=== PATIENT | female | born 1945 | race Caucasian/White ===

== ENCOUNTER 2024-04-19 16:34 | Emergency (ER) | payer OTHER ==
[2024-04-19] MEDS ORDERED: HYDROCODONE/APAP 5/325 MG TAB ONE (19:07)
[2024-04-19] MEDS ORDERED: ONDANSETRON 4 MG (ODT) TAB ONE ×2 (19:07→19:09)
--- NOTE | 2024-04-19 19:44 | RAD REPORT ---
EXAM DESCRIPTION: CT - Spine Lumbar Wo Con - 04/19/2024 6:56 pm CLINICAL HISTORY: Radiculopathy. fall COMPARISON: No comparisons TECHNIQUE: Axial noncontrast CT imaging of the lumbar spine was performed with coronal and sagittal re-formatted images. All CT scans are performed using dose optimization technique as appropriate and may include automated exposure control or mA/KV adjustment according to patient size. FINDINGS: No acute lumbar spine fracture seen. Degenerative changes present upper lumbar levels with disc thinning and posterior osteophyte formation. Prominent posterior disc bulging is present mid an d lower lumbar spine. Paraspinal tissues are normal in thickness. No paraspinal abscess or hematoma seen. Aortic atheroscle rosis seen. No high-grade canal stenosis is seen. IMPRESSION: No acute lumbar spine abnormality seen. Moderate lower lumbar degenerative changes.
--- NOTE | 2024-04-19 21:39 | EDPHYS ---
Physician Documentation [facility] Name: Madeline Gracia Age: 78 yrs Sex: Female : 1945 Arrival Date: 04/19/2024 Time: 16:34 Bed DX3 Private MD: ED Physician Emir Bailey HPI: 04/19 22:12 This 78 yrs old White Female presents to ER via Wheelchair with complaints of back pain.sb4 22:12 patient states that she fell on her back a few days ago is complaining of pain. states sb4 that she had it checked out initially and was told her imaging was negative but did not receive anything for pain. reports pain with movement. no numbness, tingling, weakness, bowel/bladder incontinence. Historical: - Allergies: 19:56 Codeine; as6 - PMHx: 19:56 Hypertensive disorder; Hypercholesterolemia; as6 - PSHx: 19:56 section; Total abdominal hysterectomy; Tonsillectomy; as6 - Immunization history:: Adult Immunizations up to date. - Infectious Disease History:: Denies. - Social history:: Smoking status: Patient/guardian denies using tobacco, the patient reports quitting approximately 10 years ago. ROS: 22:12 Constitutional: Negative for fever, chills, and weight loss, sb4 22:12 Back: Positive for injury or acute deformity, pain with movement, of the lumbar area and sacrum, 22:12 All other systems are negative, Exam: 22:12 Constitutional: This is a well developed, well nourished patient who is awake, alert, sb4 and in no acute distress. Head/Face: Normocephalic, atraumatic. Eyes: Extra-ocular motions intact. Periorbital areas with no swelling, redness, or edema. ENT: Mucous membranes moist. Skin: Warm, dry with normal turgor. Normal color with no rashes, no lesions, and no evidence of cellulitis. Neuro: Awake and alert, GCS 15, oriented to person, place, time, and situation. Motor strength 5/5 in all extremities. Sensory grossly intact. 22:12 Back: pain, that is moderate, of the lumbar area and sacrum, ROM is painful, with all movement, normal spinal alignment noted, CVA tenderness, is absent, vertebral tenderness, is not appreciated, muscle spasm, is not present, Vital Signs: 16:48 BP 136 / 62; Pulse 59; Resp 16; Temp 97.6; Pulse Ox 95% ; Weight 59.87 kg; Height 4 ft. as6 11 in. ; Pain 8/10; 20:01 BP 163 / 68; Pulse 54; Resp 18; Pulse Ox 97% on R/A; oe 16:48 Body Mass Index 26.66 (59.87 kg, 149.86 cm) as6 16:48 Pain Scale: Adult as6 MDM: 19:18 Patient medically screened. sb4 22:14 Data reviewed: vital signs, nurses notes, EMS record, radiologic studies, and as a sb4 result, I will discharge patient. Care significantly affected by the following chronic conditions: Hypertension. Counseling: I had a detailed discussion with the patient and/or guardian regarding the historical points, exam findings, and any diagnostic results supporting the discharge/admit diagnosis, the presence of at least one elevated blood pressure reading (>120/80) during this emergency department visit, radiology results, the need for outpatient follow up, for definitive care, to return to the emergency department if symptoms worsen or persist or if there are any questions or concerns that arise at home. Administered Medications: 19:47 CANCELLED (Physician Discretion): hydrocodone-acetaminophen(7.5 mg-325 mg) 1 tabs PO sb4 once Disposition Summary: 04/19/24 19:52 Discharge Ordered Notes: Location: Home sb4 Problem: new sb4 Symptoms: have improved sb4 Condition: Stable sb4 Diagnosis - Low back pain, sacral contusion sb4 Followup: sb4 - With: Private Physician - When: As needed - Reason: Recheck today's complaints, Re-evaluation by your physician Discharge Instructions: - Discharge Summary Sheet sb4 - Tailbone Injury, [id number] sb4 - Low Back Sprain or Strain Rehab sb4 Forms: - Prescription Opioid Use sb4 - Patient Portal Instructions sb4 - Leadership Thank You Letter sb4 Prescriptions: - acetaminophen-codeine 300-30 mg Oral tablet - take 1 tablet ORAL route every 4 to 6 hours as needed for pain; 12 tablet; sb4 Refills: 0, Product Selection Permitted Signatures: Austin Crisostomo RN RN as6 Chiqui Hernandez RN RN kb3 Jennifer Machado PA-C PA-C sb4 Corrections: (The following items were deleted from the chart) 19:47 19:39 Hydrocodone-Acetaminophen PO (7.5 mg-325 mg) 1 tabs PO once ordered. sb4 sb4 19:47 19:46 Hydrocodone-Acetaminophen PO (7.5 mg-325 mg) 1 tabs PO once given. kb3 sb4 19:47 19:46 Hydrocodone-Acetaminophen PO (7.5 mg-325 mg) 1 tabs PO once ordered. kb3 sb4
--- NOTE | 2024-04-19 21:39 | ER ---
Nurse's Notes [facility] Name: Madeline Gracia Age: 78 yrs Sex: Female : 1945 Arrival Date: 04/19/2024 Time: 16:34 Bed DX3 Private MD: Diagnosis: Low back pain, sacral contusion Presentation: 04/19 16:48 Coronavirus screen: At this time, the client does not indicate any symptoms associated as6 with coronavirus-19. Ebola Screen: No symptoms or risks identified at this time. Risk Assessment: Do you want to hurt yourself or someone else? Patient reports no desire to harm self or others. Onset of symptoms was April 16, 2024. 16:48 Acuity: PEDRO 3 as6 16:48 Chief complaint: Patient states: fell 3 days ago froma recliner and is c/o back pain. as6 Initial Sepsis Screen: Does the patient meet any 2 criteria? No. Patient's initial sepsis screen is negative. Does the patient have a suspected source of infection? No. Patient's initial sepsis screen is negative. 16:48 Method Of Arrival: Wheelchair as6 Historical: - Allergies: 19:56 Codeine; as6 - PMHx: 19:56 Hypertensive disorder; Hypercholesterolemia; as6 - PSHx: 19:56 section; Total abdominal hysterectomy; Tonsillectomy; as6 - Immunization history:: Adult Immunizations up to date. - Infectious Disease History:: Denies. - Social history:: Smoking status: Patient/guardian denies using tobacco, the patient reports quitting approximately 10 years ago. Screenin:00 [facility] ED Fall Risk Assessment (Adult) History of falling in the last 3 months, vc1 including since admission Yes- physiologic fall (2 pts) Confusion or Disorientation No (0 pts) Intoxicated or Sedated Yes (3 pts) Impaired Gait No (0 pts) Mobility Assist Device Used No (0 pt) Altered Elimination No (0 pt) Score/Fall Risk Level 0 - 2 = Low Risk Oriented to surroundings, Maintained a safe environment, Educated pt \T\ family on fall prevention, incl call for assistance when getting out of bed. Abuse screen: Denies threats or abuse. Nutritional screening: No deficits noted. Tuberculosis screening: No symptoms or risk factors identified. Vital Signs: 16:48 BP 136 / 62; Pulse 59; Resp 16; Temp 97.6; Pulse Ox 95% ; Weight 59.87 kg; Height 4 ft. as6 11 in. ; Pain 8/10; 20:01 BP 163 / 68; Pulse 54; Resp 18; Pulse Ox 97% on R/A; oe 16:48 Body Mass Index 26.66 (59.87 kg, 149.86 cm) as6 16:48 Pain Scale: Adult as6 ED Course: 19:17 Patient arrived in ED. rg4 19:18 Jennifer Machado PA-C is PHCP. sb4 19:18 Emir Bailey DO is Attending Physician. sb4 19:56 Triage completed. as6 20:05 Arm band placed on. vc1 20:12 No provider procedures requiring assistance completed. Patient did not have IV access vc1 during this emergency room visit. Administered Medications: 19:47 CANCELLED (Physician Discretion): hydrocodone-acetaminophen(7.5 mg-325 mg) 1 tabs PO sb4 once Medication: 20:12 VIS not applicable for this client. vc1 Outcome: 19:52 Discharge ordered by MD. sb4 20:12 Discharged to home via wheelchair, vc1 20:12 Condition: good 20:12 Discharge instructions given to patient, Instructed on discharge instructions, follow up and referral plans. medication usage, Demonstrated understanding of instructions, follow-up care, medications, Prescriptions given X 1, 20:13 Patient left the ED. vc1 Signatures: Betina Castillo rg4 Victor Hugo Roland Ashby, RN RN as6 Kareen Gusman RN RN vc1 Chiqui Hernandez RN RN kb3 Jennifer Machado PA-C PA-C sb4 Corrections: (The following items were deleted from the chart) 19:46 19:46 Hydrocodone-Acetaminophen PO (7.5 mg-325 mg) 1 tabs PO kb3 kb3
[2024-04-19 23:45] VITALS: BP 163/68; TEMP 97.6; O2SAT 97
== END 2024-04-19 20:13 | disposition home or self-care (01) ==
LOC: ER 16:34
DX: S30.0XXA Contusion of lower back and pelvis, initial encounter (principal); W18.30XA Fall on same level, unspecified, initial encounter
CPT/HCPCS: 72131; 99283; Q0162

== ENCOUNTER 2024-05-22 01:28 | Emergency (ER) | payer OTHER ==
--- OUTSIDE RECORDS SUMMARY | 2024-05-22 01:36 | XMS REPORT | Continuity of Care Document ---
Author Name Unknown Address [address] [facility] [address] [place] [address] [facility] Address [address] [facility] [address] [place] [address] Care Team Providers Care Privacy Analyst Name Role Phone ERICK GASCA Primary Care Physician UnavailCRYSTAL Blue Attending Clinician Marilu SUSANNE Bernal Attending Clinician Unavailable Erick Taylor Attending Clinician [phone] Crystal Childs MD Attending Clinician ERICK GRACIA Attending Clinician UnavailErick Covington Attending Clinician [phone] DENNYS SERRANO Attending Clinician Unavailable Clarissa Sotelo Attending Clinician [phone] Unknown, Attending Attending Clinician UnavailCLARISSA Ware Attending Clinician UnavailERICK Hernandez Attending Clinician Unavailable RASHI GUAJARDO Attending Clinician Unavailable Juany Duong RN Attending Clinician Unavailab MELANIE Galvan Attending Clinician Unavailable Melanie Hernandez MD Attending Clinician [phone] LOUIE MOSHER Attending Clinician UnaCAROLINE Pisano Attending Clinician Unavailable Caroline Ugalde MD Attending Clinician [phone] Kelly Soriano RN Attending Clinician Unavailable Sue Santos RN Attending Clinician Unavailab YOKO Mace Attending Clinician Unavailable YOKO VÁSQUEZ Attending Clinician Unavailable Jono Martin LVN Attending Clinician Cal grimm Doctor Unassigned, [place] Attending Clinician U ely Means MD, Brad Rojo Attending Clinician [phone] ALONDRA MANCINI Attending Clinician Louie Paul MD Attending Clinician + [phone] SRUTHI MCKEON Attending Clinician Unavailable Trudy CHAHAL, Sruthi Morris Attending Clinician [phone] BLANQUITA MONCADA Attending Clinician BRAD Onofre Attending Clinician UnavailRAKESH Saravia Attending Clinician Unavail able Nurse, Adc Pob Immunization Attending Clinician Unavailable Rakesh Velazquez DO Attending Clinician [phone] Lab, Ang - Db Attending Clinician Unavailable Reina Scott DO Attending Clinician [phone] REINA SCOTT Attending Clinician Unavailab le Lab, Adc Fam Pob I Attending Clinician Unavailab OLIMPIA Yan Attending Clinician Unavailable Jeannie PITTS Attending Clinician Unavailable YENY RAMOS Attending Clinician UnavailMaurilio Krueger Attending Clinician [phone] SRUTHI MCKEON Admitting Clinician Unavailable REINA SCOTT Admitting Clinician Unavailab Jeannie Rome Admitting Clinician Unavailable Payers Payer Name Policy Type Policy Number Effective Date Expirati on Date Source MEDICARE PART A \\T\\ B [id number] 2011 00:00:00 [employer] GENERIC [id number] 2016 00:00:00 [employer] CHOICE [id number] 2022 00:00:00 MEDICARE-PART B 5 [id number] 2024 00:00:00 [employer] 3 [id number] 2024 00:00:00 [employer] MEDICARE [id number] [id number] PLUS 2021 7 [id number] 2022 00:00:00 [employer] MA 5 [id number] 2022 00:00:00 Problems Condition Name Condition Details Condition Category Status Onset Date Resolution Date Last Treatment Date Treating Clinician Comments Source Gross hematuria Gross hematuria Disease Active 2022-10 0-17 00:00: 00 [facility] Chronic rhinitis Chronic rhinitis Disease Active 8-17 00:00: 00 [facility] Fatty liver Fatty liver Disease Active 2020-10 0-20 00:00: 00 [facility] 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 Active 2020-10 0-20 00:00: 00 [facility] Prediabete s Prediabete s Disease Active 9-15 00:00: 00 [facility] Abnormal LFTs Abnormal LFTs Disease Active 915 00:00: 00 [facility] Polyarthra lgia Polyarthra lgia Disease Active 3-14 00:00: 00 [facility] 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 5-19 00:00: 00 [facility] Carotid artery stenosis Carotid artery stenosis Disease Active 925 00:00: 00 [facility] Thrombocyt osis Thrombocyt osis Disease Active 7-30 00:00: 00 [facility] Chronic obstructiv e pulmonary disease, unspecifie d COPD type Chronic obstructiv e pulmonary disease, unspecifie d COPD type Disease Active 4-16 00:00: 00 [facility] Postmenopa usal estrogen deficiency Postmenopa usal estrogen deficiency Disease Active 1-24 00:00: 00 [facility] Major depressive disorder, recurrent episode, moderate Major depressive disorder, recurrent episode, moderate Disease Active 1-06 00:00: 00 [facility] Acquired hypothyroi dism Acquired hypothyroi dism Disease Active 01-14 00:00: 00 [facility] Mixed dyslipidem ia Mixed dyslipidem ia Disease Active 01-14 00:00: 00 [facility] Essential hypertensi on Essential hypertensi on Disease Active 01-14 00:00: 00 [facility] Surgical menopause Surgical menopause Disease Resolve d 1-24 00:00: 00 2021-06-29 00:00:00 2021-06-29 21:40:43 [facility] Vaginal atrophy Vaginal atrophy Disease Resolve d 1- 00:00: 00 2021-06-29 00:00:00 2021-06-29 21:40:52 [facility] Pain pelvic Pain pelvic Disease Resolve d - 00:00: 00 2021-06-29 00:00:00 2021-06-29 21:40:35 [facility] Urinary frequency Urinary frequency Disease Resolve d 10-17 00:00: 00 2021-06-29 00:00:00 2021-06-29 21:40:49 [facility] Chronic depression Chronic depression Disease Resolve d 10-17 00:00: 00 2018-10-17 00:00:00 2018-10-17 22:35:02 [facility] Allergies, Adverse Reactions, Alerts Allergy Name Allergy Type Status Severity Reaction(s) Onset Date Inactive Date Treating Clinician Comments Source PHENOTHI AZINES Drug Class Active Anaphylaxis 05-28 00:00: 00 [facility] Phenothi azines Propensi ty to adverse reaction s Active Anaphylaxis 05-28 00:00: 00 [facility] Statins- Hmg-Coa Reductas e Inhibito rs Propensi ty to adverse reaction s Active Other - See comments 11-10 00:00: 00 myalgias [facility] STATINS- HMG-COA REDUCTAS E INHIBITO RS Drug Class Active Other-Cmnt 11-10 00:00: 00 [facility] Statins- Hmg-Coa Reductas e Inhibito rs Propensi ty to adverse reaction s Active Other - See comments 11-10 00:00: 00 myalgias [facility] CODEINE DRUG INGREDI Active ITCHING 01-14 00:00: 00 [facility] Codeine Propensi ty to adverse reaction s Active Itching 01-14 00:00: 00 [facility] Social History Social Habit Start Date Stop Date Quantity Comments Source History SDOH Alcohol Frequency [facility] History SDOH Alcohol Std Drinks [facility] History SDOH Alcohol Binge [facility] History of tobacco use Cigarette Smoker [facility] Gender identity [facility] Sexual orientation [facility] Alcoholic beverage intake 2024-01-04 00:00:00 2024-01-04 00:00:00 .57 /d [facility] Alcohol intake 2024-01-04 00:00:00 2024-01-04 00:00:00 .57 /d [facility] History of Social function 2023-05-28 00:00:00 2023-05-28 00:00:00 [facility] Exposure to SARS-CoV-2 (event) 2023-01-10 00:00:00 2023-01-20 15:55:00 Not sure [facility] Cigarettes smoked current (pack per day) - Reported 2023-01-20 00:00:00 2023-01-20 00:00:00 [facility] Cigarette pack-years 2023-01-20 00:00:00 2023-01-20 00:00:00 [facility] Tobacco use and exposure 2023-01-20 00:00:00 2023-01-20 00:00:00 Smokeless tobacco non-user [facility] Tobacco Comment 2023-01-20 00:00:00 2023-01-20 00:00:00 Quit 2017 [facility] Alcohol Comment 2018-10-15 00:00:00 2018-10-15 00:00:00 3-4 drinks per day [facility] Sex assigned at 1945 00:00:00 1945 00:00:00 [facility] Smoking Status Start Date Stop Date Source Ex-smoker 2023-01-20 00:00:00 2023-01-20 00:00:00 [facility] Medications Ordered Medication Name Filled Medication Name Start Date Stop Date Current Medication? Ordering Clinician Indication Dosage Frequency Signature (SIG) Comments Components Source metoprolol succinate XL 50 mg 24 hr tablet -05 00:00: 00 Yes [id number] 50mg Take 1 tablet by mouth in the morning. MUST BE SEEN FOR FURTHER REFILLS [facility] Fenofibrate 160 mg tablet 04-28 00:00: 00 Yes [id number] 160mg Take 1 tablet by mouth in the morning. [facility] ezetimibe 10 mg tablet 04-21 00:00: 00 Yes [id number] 10mg Take 1 tablet by mouth in the morning. MUST BE SEEN FOR FURTHER REFILLS [facility] metoprolol succinate XL 50 mg 24 hr tablet 04-12 00:00: 00 05-16 00:00 :00 No [id number] 50mg Take 1 tablet by mouth in the morning. MUST BE SEEN FOR FURTHER REFILLS [facility] Fenofibrate 160 mg tablet 03-15 00:00: 00 Yes [id number] 160mg Take 1 tablet by mouth in the morning. [facility] ketorolac (TORADOL) injection 30 mg 03-13 21:30: 00 03-13 20:48 :00 No [id number] 9109 30mg [facility] dexamethaso ne sod phos PF injection 10 mg 03-13 21:30: 00 03-13 20:47 :00 No [id number] 9109 10mg [facility] ibuprofen 600 mg tablet 03-13 00:00: 00 Yes [id number] 9109 600mg Take 1 tablet by mouth every 8 (eight) hours as needed for Pain (scale 4-6). [facility] levothyroxi ne 50 mcg tablet 03-04 00:00: 00 Yes [id number] TAKE ONE TABLET BY MOUTH EVERY MORNING. GET LABS DONE [facility] levothyroxi ne 50 mcg tablet 03-03 00:00: 00 03-04 00:00 :00 No [id number] TAKE ONE TABLET BY MOUTH EVERY MORNING. DISCONTINU E 88MCG [facility] triamterene -hydrochlor othiazide 37.5-25 mg per capsule 02-28 00:00: 00 Yes [id number] TAKE ONE CAPSULE BY MOUTH EVERY MORNING [facility] Fenofibrate 160 mg tablet 5-20 00:00: 00 03-15 00:00 :00 No [id number] 160mg Take 1 tablet by mouth in the morning. [facility] metoprolol succinate XL 50 mg 24 hr tablet 5-06 00:00: 00 04-12 00:00 :00 No [id number] 50mg Take 1 tablet by mouth in the morning. MUST BE SEEN FOR FURTHER REFILLS [facility] triamterene -hydrochlor othiazide 37.5-25 mg per capsule 4-30 00:00: 00 02-26 00:00 :00 No [id number] TAKE ONE CAPSULE BY MOUTH EVERY MORNING [facility] Fenofibrate 160 mg tablet -30 00:00: 00 02-26 00:00 :00 No [id number] 160mg Take 1 tablet by mouth in the morning. [facility] metoprolol succinate XL 50 mg 24 hr tablet -07 00:00: 00 02-14 00:00 :00 No [id number] 50mg Take 1 tablet by mouth in the morning. MUST BE SEEN FOR FURTHER REFILLS [facility] triamterene -hydrochlor othiazide 37.5-25 mg per capsule 1-29 00:00: 00 02-08 00:00 :00 No [id number] TAKE ONE CAPSULE BY MOUTH EVERY MORNING [facility] fluticasone -umeclidin- vilanter (TRELEGY ELLIPTA) 100-62.5-25 mcg DsDv 2022-10 2 00:00: 00 Yes [id number] 1{puff} Inhale 1 Puff in the morning. Rinse mouth after each use. [facility] eszopiclone 2 mg tablet 2022-10 13:21: 08 Yes 2mg Take 1 tablet by mouth at bedtime. [facility] montelukast 10 mg tablet 2022-10 1- 00:00: 00 Yes [id number] 10mg Take 1 tablet by mouth in the morning. [facility] metoprolol succinate XL 50 mg 24 hr tablet 2022-10 00:00: 00 11-18 00:00 :00 No [id number] 50mg Take 1 tablet by mouth in the morning. MUST BE SEEN FOR FURTHER REFILLS [facility] Fenofibrate 160 mg tablet 2022-10 0 00:00: 00 02-08 00:00 :00 No [id number] 160mg Take 1 tablet by mouth in the morning. [facility] estradioL (ESTRACE) 0.01 % (0.1 mg/gram) vaginal cream 2022-10 0 00:00: 00 Yes [id number] Apply 1g vaginally at bedtime every night for 4 weeks [facility] doxepin 50 mg capsule 2022-10 00:00: 00 Yes [id number] 50mg Take 1 capsule by mouth at bedtime. [facility] olopatadine 0.1 % ophthalmic solution 05-28 00:00: 00 Yes [id number] 1[drp] Place 1 Drop in both eyes in the morning and 1 Drop in the evening. [facility] levocetiriz ine 5 mg tablet 05-28 00:00: 00 Yes [id number] 5mg Take 1 tablet by mouth every evening. [facility] montelukast 10 mg tablet 05-28 00:00: 00 09-07 00:00 :00 No [id number] 10mg Take 1 tablet by mouth in the morning. [facility] aspirin 81 mg EC tablet 01-20 00:00: 00 Yes [id number] 81mg Take 1 tablet by mouth in the morning. Take with food. [facility] ezetimibe 10 mg tablet 01-20 00:00: 00 04-14 00:00 :00 No [id number] 10mg Take 1 tablet by mouth in the morning. [facility] levothyroxi ne 50 mcg tablet 01-20 00:00: 00 03-03 00:00 :00 No [id number] TAKE ONE TABLET BY MOUTH EVERY MORNING. DISCONTINU E 88MCG [facility] triamterene -hydrochlor othiazide 37.5-25 mg per capsule - 00:00: 00 11-04 00:00 :00 No [id number] TAKE ONE CAPSULE BY MOUTH EVERY MORNING [facility] metoprolol succinate XL 50 mg 24 hr tablet 01-20 00:00: 00 08-19 00:00 :00 No [id number] 50mg Take 1 tablet by mouth in the morning. MUST BE SEEN FOR FURTHER REFILLS [facility] Fenofibrate 160 mg tablet 01-20 00:00: 00 08-06 00:00 :00 No [id number] 160mg Take 1 tablet by mouth in the morning. [facility] metoprolol succinate XL 50 mg 24 hr tablet 01-12 00:00: 00 01-20 00:00 :00 No [id number] 50mg Take 1 tablet by mouth in the morning. MUST BE SEEN FOR FURTHER REFILLS [facility] ALLOPURINOL 100 mg tablet 2- 00:00: 00 Yes [id number] TAKE ONE AND HALF TABLET BY MOUTH DAILY [facility] ALLOPURINOL 100 mg tablet 217 00:00: 00 Yes [id number] TAKE ONE AND HALF TABLET BY MOUTH DAILY [facility] metoprolol succinate XL 50 mg 24 hr tablet 2- 00:00: 00 01-12 00:00 :00 No [id number] 50mg Take 1 tablet by mouth in the morning. [facility] triamterene -hydrochlor othiazide 37.5-25 mg per capsule 2021-10 2-20 00:00: 00 01-20 00:00 :00 No [id number] TAKE ONE CAPSULE BY MOUTH EVERY MORNING [facility] metoprolol succinate XL 50 mg 24 hr tablet 2021-10 1- 00:00: 00 11-13 00:00 :00 No [id number] 50mg Take 1 tablet by mouth in the morning. [facility] Fenofibrate 160 mg tablet 2021-10 0-24 00:00: 00 01-20 00:00 :00 No [id number] 160mg Take 1 tablet by mouth in the morning. [facility] TRIAMTERENE -HYDROCHLOR OTHIAZIDE 37.5-25 mg per capsule 2021-10 0-04 00:00: 00 09-30 00:00 :00 No [id number] TAKE ONE CAPSULE BY MOUTH EVERY MORNING [facility] iopamidol (ISOVUE 370-500 mL) injection 100 mL 2021-10 0-03 05:15: 00 07-14 04:17 :00 No [id number] 100mL 100 mL, Intravenou s, ONCE, 1 dose, On 07/14/22 at 0015, Routine [facility] dexamethaso ne (DECADRON PHOSPHATE) injection 10 mg 2021-10 0-03 04:15: 00 07-14 04:15 :00 No 10mg 10 mg, Intramuscu lar, ONCE, 1 dose, On 07/13/22 at 2315, Routine [facility] HYDROcodone -acetaminop hen (NORCO) 10-325 mg tablet 1 tablet 2021-10 0-03 04:15: 00 07-14 03:38 :00 No 1{tbl} 1 tablet, Oral, ONCE, 1 dose, On 07/13/22 at 2315, Routine [facility] ketorolac (TORADOL) injection 15 mg 2021-10 0-03 04:15: 00 07-14 03:36 :00 No 15mg 15 mg, Slow IV Push, ONCE, 1 dose, On 07/13/22 at 2315, Routine [facility] methylPREDN ISolone 4 mg tablets 2021-10 0-03 00:00: 00 Yes [id number] Take by mouth SEE-INSTRU CTIONS. follow package directions [facility] mupirocin 2 % ointment 2021-10 0-03 00:00: 00 Yes [id number] Apply to area(s) 3 (three) times daily. [facility] ketorolac 10 mg tablet 2021-10 0-03 00:00: 00 01-20 00:00 :00 No [id number] 10mg Take 1 tablet by mouth every 6 (six) hours as needed for Pain (scale 1-3) or Pain (scale 4-6). [facility] ciprofloxac in HCl 500 mg tablet 2021-10 0-03 00:00: 00 07-22 04:59 :00 No [id number] 500mg Take 1 tablet by mouth in the morning and 1 tablet at noon and 1 tablet in the evening. Do all this for 7 days. [facility] fluconazole 150 mg tablet 2021-10 0-03 00:00: 00 07-19 04:59 :00 No [id number] 150mg Take 1 tablet by mouth every 36 (thirty-si x) hours for 3 doses. [facility] metoprolol succinate XL 50 mg 24 hr tablet 07-09 00:00: 00 09-09 00:00 :00 No [id number] 50mg Take 1 tablet by mouth in the morning. [facility] FENOFIBRATE 160 mg tablet 9-21 00:00: 00 08-04 00:00 :00 No [id number] TAKE ONE TABLET BY MOUTH DAILY [facility] EZETIMIBE 10 mg tablet 9-19 00:00: 00 01-20 00:00 :00 No [id number] TAKE ONE TABLET BY MOUTH DAILY [facility] LEVOTHYROXI NE 50 mcg tablet 8-16 00:00: 00 01-20 00:00 :00 No [id number] TAKE ONE TABLET BY MOUTH EVERY MORNING. DISCONTINU E 88MCG [facility] metoprolol succinate XL 50 mg 24 hr tablet 8- 00:00: 00 07-09 00:00 :00 No [id number] 50mg Take 1 tablet by mouth in the morning. [facility] estradioL (ESTRACE) 0.01 % (0.1 mg/gram) vaginal cream 6- 00:00: 00 07-28 00:00 :00 No [id number] Apply 1g vaginally at bedtime every night for 4 weeks [facility] albuterol 90 mcg/actuati on inhaler 03-21 00:00: 00 Yes [id number] 2{puff} Inhale 2 Puffs every 6 (six) hours as needed for Wheezing or Shortness of Breath. [facility] fluticasone -umeclidin- vilanter (TRELEGY ELLIPTA) 100-62.5-25 mcg DsDv 03-21 00:00: 00 10-08 00:00 :00 No [id number] 1{puff} Inhale 1 Puff daily. Rinse mouth after each use. [facility] cephALEXin (KEFLEX) 500 mg capsule 03-21 00:00: 00 07-14 00:00 :00 No [id number] 500mg Take 1 capsule by mouth 3 (three) times daily. [facility] phentermine 37.5 mg tablet 12-10 00:00: 00 07-28 00:00 :00 No [facility] ALPRAZolam 1 mg tablet 12-03 00:00: 00 Yes [facility] doxepin 50 mg capsule 12-03 00:00: 00 07-28 00:00 :00 No [facility] ergocalcife rol, vitamin d2, 1,250 mcg (50,000 unit) capsule 2020-10 00:00: 00 Yes [id number] 22901T Take 1 capsule by mouth weekly. Take with food. [facility] cyclobenzap rine 5 mg tablet 2020-10 00:00: 00 Yes [id number] 5mg Take 1 tablet by mouth 3 (three) times daily as needed for Muscle Spasms. [facility] allopurinoL 100 mg tablet 2020-10 00:00: 00 11-28 00:00 :00 No [id number] 150mg Take 1.5 tablets by mouth daily. [facility] naproxen 500 mg tablet 2020-10 00:00: 00 07-14 00:00 :00 No [facility] FLUoxetine 20 mg capsule 2020-10 1-23 00:00: 00 07-28 00:00 :00 No [facility] metoprolol succinate XL 50 mg 24 hr tablet 2020-10 0-26 00:00: 00 05-12 00:00 :00 No [id number] 50mg Take 1 tablet by mouth daily. [facility] levothyroxi ne 50 mcg tablet 15 00:00: 00 05-27 00:00 :00 No [id number] 50ug Take 1 tablet by mouth every morning. NEW DOSE. [facility] COLLAGEN MISC 06-21 16:11: 38 Yes [facility] COLLAGEN MISC 06-21 16:11: 38 Yes [facility] triamterene -hydrochlor othiazide 37.5-25 mg per capsule 06-21 00:00: 00 07-15 00:00 :00 No [id number] 1{capsu le} Take 1 capsule by mouth every morning. [facility] Fenofibrate 160 mg tablet 06-21 00:00: 00 07-02 00:00 :00 No [id number] 160mg Take 1 tablet by mouth daily. [facility] ezetimibe 10 mg tablet 06-21 00:00: 00 06-30 00:00 :00 No [id number] 10mg Take 1 tablet by mouth daily. [facility] aspirin 81 mg EC tablet 07-08 00:00: 00 01-20 00:00 :00 No [id number] 81mg Take 1 tablet by mouth daily. Take with food. [facility] Immunizations Ordered Immunization Name Filled Immunization Name Date Status Comments Source TD 2023-01-20 00:00:00 Completed [facility] TDAP 2023-01-20 00:00:00 Completed [facility] TDAP 2023-01-20 00:00:00 Completed [facility] TDAP 2023-01-20 00:00:00 Completed [facility] TDAP 2023-01-20 00:00:00 Completed [facility] TDAP 2023-01-20 00:00:00 Completed [facility] TDAP 2023-01-20 00:00:00 Completed [facility] Pneumococcal Polysaccharide, PPSV23 (PNEUMOVAX) 2021-09-27 00:00:00 Completed [facility] Influenza Virus Vaccine,quad Im,preserve Free 65+ 2021-09-27 00:00:00 Completed [facility] Pneumococcal Polysaccharide, PPSV23 (PNEUMOVAX) 2021-09-27 00:00:00 Completed [facility] Influenza Virus Vaccine,quad Im,preserve Free 65+ 2021-09-27 00:00:00 Completed [facility] Pneumococcal Polysaccharide, PPSV23 (PNEUMOVAX) 2021-09-27 00:00:00 Completed [facility] Influenza Virus Vaccine,quad Im,preserve Free 65+ 2021-09-27 00:00:00 Completed [facility] Pneumococcal Polysaccharide, PPSV23 (PNEUMOVAX) 2021-09-27 00:00:00 Completed [facility] Influenza Virus Vaccine,quad Im,preserve Free 65+ 2021-09-27 00:00:00 Completed [facility] Pneumococcal Polysaccharide, PPSV23 (PNEUMOVAX) 2021-09-27 00:00:00 Completed [facility] Influenza Virus Vaccine,quad Im,preserve Free 65+ 2021-09-27 00:00:00 Completed [facility] Pneumococcal Polysaccharide, PPSV23 (PNEUMOVAX) 2021-09-27 00:00:00 Completed [facility] Influenza Virus Vaccine,quad Im,preserve Free 65+ 2021-09-27 00:00:00 Completed [facility] Pneumococcal Polysaccharide, PPSV23 (PNEUMOVAX) 2021-09-27 00:00:00 Completed [facility] Influenza Virus Vaccine,quad Im,preserve Free 65+ 2021-09-27 00:00:00 Completed [facility] Pneumococcal Polysaccharide, PPSV23 (PNEUMOVAX) 2021-09-27 00:00:00 Completed [facility] Influenza Virus Vaccine,quad Im,preserve Free 65+ 2021-09-27 00:00:00 Completed [facility] Pneumococcal Polysaccharide, PPSV23 (PNEUMOVAX) 2021-09-27 00:00:00 Completed [facility] Influenza Virus Vaccine,quad Im,preserve Free 65+ 2021-09-27 00:00:00 Completed [facility] Pneumococcal Polysaccharide, PPSV23 (PNEUMOVAX) 2021-09-27 00:00:00 Completed [facility] Influenza Virus Vaccine,quad Im,preserve Free 65+ 2021-09-27 00:00:00 Completed [facility] Pneumococcal Polysaccharide, PPSV23 (PNEUMOVAX) 2021-09-27 00:00:00 Completed [facility] Influenza Virus Vaccine,quad Im,preserve Free 65+ 2021-09-27 00:00:00 Completed [facility] Pneumococcal Polysaccharide, PPSV23 (PNEUMOVAX) 2021-09-27 00:00:00 Completed [facility] Influenza Virus Vaccine,quad Im,preserve Free 65+ 2021-09-27 00:00:00 Completed [facility] Pneumococcal Polysaccharide, PPSV23 (PNEUMOVAX) 2021-09-27 00:00:00 Completed [facility] Influenza Virus Vaccine,quad Im,preserve Free 65+ 2021-09-27 00:00:00 Completed [facility] Pneumococcal Polysaccharide, PPSV23 (PNEUMOVAX) 2021-09-27 00:00:00 Completed [facility] Influenza Virus Vaccine,quad Im,preserve Free 65+ 2021-09-27 00:00:00 Completed [facility] Pneumococcal Polysaccharide, PPSV23 (PNEUMOVAX) 2021-09-27 00:00:00 Completed [facility] Influenza Virus Vaccine,quad Im,preserve Free 65+ 2021-09-27 00:00:00 Completed [facility] Pneumococcal Polysaccharide, PPSV23 (PNEUMOVAX) 2021-09-27 00:00:00 Completed [facility] Influenza Virus Vaccine,quad Im,preserve Free 65+ 2021-09-27 00:00:00 Completed [facility] Pneumococcal Polysaccharide, PPSV23 (PNEUMOVAX) 2021-09-27 00:00:00 Completed [facility] Influenza Virus Vaccine,quad Im,preserve Free 65+ 2021-09-27 00:00:00 Completed [facility] Pneumococcal Polysaccharide, PPSV23 (PNEUMOVAX) 2021-09-27 00:00:00 Completed [facility] Influenza Virus Vaccine,quad Im,preserve Free 65+ 2021-09-27 00:00:00 Completed [facility] Pneumococcal Polysaccharide, PPSV23 (PNEUMOVAX) 2021-09-27 00:00:00 Completed [facility] Influenza Virus Vaccine,quad Im,preserve Free 65+ 2021-09-27 00:00:00 Completed [facility] Pneumococcal Polysaccharide, PPSV23 (PNEUMOVAX) 2021-09-27 00:00:00 Completed [facility] Influenza Virus Vaccine,quad Im,preserve Free 65+ 2021-09-27 00:00:00 Completed [facility] Pneumococcal Polysaccharide, PPSV23 (PNEUMOVAX) 2021-09-27 00:00:00 Completed [facility] Influenza Virus Vaccine,quad Im,preserve Free 65+ 2021-09-27 00:00:00 Completed [facility] Pneumococcal Polysaccharide, PPSV23 (PNEUMOVAX) 2021-09-27 00:00:00 Completed [facility] Influenza Virus Vaccine,quad Im,preserve Free 65+ 2021-09-27 00:00:00 Completed [facility] Pneumococcal Polysaccharide, PPSV23 (PNEUMOVAX) 2021-09-27 00:00:00 Completed [facility] Influenza Virus Vaccine,quad Im,preserve Free 65+ 2021-09-27 00:00:00 Completed [facility] Pneumococcal Polysaccharide, PPSV23 (PNEUMOVAX) 2021-09-27 00:00:00 Completed [facility] Influenza Virus Vaccine,quad Im,preserve Free 65+ 2021-09-27 00:00:00 Completed [facility] Pneumococcal Polysaccharide, PPSV23 (PNEUMOVAX) 2021-09-27 00:00:00 Completed [facility] Influenza Virus Vaccine,quad Im,preserve Free 65+ 2021-09-27 00:00:00 Completed [facility] Pneumococcal Polysaccharide, PPSV23 (PNEUMOVAX) 2021-09-27 00:00:00 Completed [facility] Influenza Virus Vaccine,quad Im,preserve Free 65+ 2021-09-27 00:00:00 Completed [facility] Pneumococcal Polysaccharide, PPSV23 (PNEUMOVAX) 2021-09-27 00:00:00 Completed [facility] Influenza Virus Vaccine,quad Im,preserve Free 65+ 2021-09-27 00:00:00 Completed [facility] Pneumococcal Polysaccharide, PPSV23 (PNEUMOVAX) 2021-09-27 00:00:00 Completed [facility] Influenza Virus Vaccine,quad Im,preserve Free 2021-09-27 00:00:00 Completed [facility] Pneumococcal Polysaccharide, PPSV23 (PNEUMOVAX) 2021-09-27 00:00:00 Completed [facility] Influenza Virus Vaccine,quad Im,preserve Free 2021-09-27 00:00:00 Completed [facility] Pneumococcal Polysaccharide, PPSV23 (PNEUMOVAX) 2021-09-27 00:00:00 Completed [facility] Influenza Virus Vaccine,quad Im,preserve Free 2021-09-27 00:00:00 Completed [facility] SARS-COV-2 COVID-19 PFIZER VACCINE 2021-08-06 00:00:00 Completed [facility] SARS-COV-2 COVID-19 PFIZER VACCINE 2021-08-06 00:00:00 Completed [facility] SARS-COV-2 COVID-19 PFIZER VACCINE 2021-08-06 00:00:00 Completed [facility] SARS-COV-2 COVID-19 PFIZER VACCINE 2021-08-06 00:00:00 Completed [facility] SARS-COV-2 COVID-19 PFIZER VACCINE 2021-08-06 00:00:00 Completed [facility] SARS-COV-2 COVID-19 PFIZER VACCINE 2021-08-06 00:00:00 Completed [facility] SARS-COV-2 COVID-19 PFIZER VACCINE 2021-08-06 00:00:00 Completed [facility] SARS-COV-2 COVID-19 PFIZER VACCINE 2021-08-06 00:00:00 Completed [facility] SARS-COV-2 COVID-19 PFIZER VACCINE 2021-08-06 00:00:00 Completed [facility] SARS-COV-2 COVID-19 PFIZER VACCINE 2021-08-06 00:00:00 Completed [facility] SARS-COV-2 COVID-19 PFIZER VACCINE 2021-08-06 00:00:00 Completed [facility] SARS-COV-2 COVID-19 PFIZER VACCINE 2021-08-06 00:00:00 Completed [facility] SARS-COV-2 COVID-19 PFIZER VACCINE 2021-08-06 00:00:00 Completed [facility] SARS-COV-2 COVID-19 PFIZER VACCINE 2021-08-06 00:00:00 Completed [facility] SARS-COV-2 COVID-19 PFIZER VACCINE 2021-08-06 00:00:00 Completed [facility] SARS-COV-2 COVID-19 PFIZER VACCINE 2021-08-06 00:00:00 Completed [facility] SARS-COV-2 COVID-19 PFIZER VACCINE 2021-08-06 00:00:00 Completed [facility] SARS-COV-2 COVID-19 PFIZER VACCINE 2021-08-06 00:00:00 Completed [facility] SARS-COV-2 COVID-19 PFIZER VACCINE 2021-08-06 00:00:00 Completed [facility] SARS-COV-2 COVID-19 PFIZER VACCINE 2021-08-06 00:00:00 Completed [facility] SARS-COV-2 COVID-19 PFIZER VACCINE 2021-08-06 00:00:00 Completed [facility] SARS-COV-2 COVID-19 PFIZER VACCINE 2021-08-06 00:00:00 Completed [facility] SARS-COV-2 COVID-19 PFIZER VACCINE 2021-08-06 00:00:00 Completed [facility] SARS-COV-2 COVID-19 PFIZER VACCINE 2021-08-06 00:00:00 Completed [facility] SARS-COV-2 COVID-19 PFIZER VACCINE 2021-08-06 00:00:00 Completed [facility] SARS-COV-2 COVID-19 PFIZER VACCINE 2021-08-06 00:00:00 Completed [facility] SARS-COV-2 COVID-19 PFIZER VACCINE 2021-08-06 00:00:00 Completed [facility] SARS-COV-2 COVID-19 PFIZER VACCINE 2021-08-06 00:00:00 Completed [facility] SARS-COV-2 COVID-19 PFIZER VACCINE 2021-08-06 00:00:00 Completed [facility] SARS-COV-2 COVID-19 PFIZER VACCINE 2021-08-06 00:00:00 Completed [facility] SARS-COV-2 COVID-19 PFIZER VACCINE 2020-11-21 00:00:00 Completed [facility] SARS-COV-2 COVID-19 PFIZER VACCINE 2020-11-21 00:00:00 Completed [facility] SARS-COV-2 COVID-19 PFIZER VACCINE 2020-11-21 00:00:00 Completed [facility] SARS-COV-2 COVID-19 PFIZER VACCINE 2020-11-21 00:00:00 Completed [facility] SARS-COV-2 COVID-19 PFIZER VACCINE 2020-11-21 00:00:00 Completed [facility] SARS-COV-2 COVID-19 PFIZER VACCINE 2020-11-21 00:00:00 Completed [facility] SARS-COV-2 COVID-19 PFIZER VACCINE 2020-11-21 00:00:00 Completed [facility] SARS-COV-2 COVID-19 PFIZER VACCINE 2020-11-21 00:00:00 Completed [facility] SARS-COV-2 COVID-19 PFIZER VACCINE 2020-11-21 00:00:00 Completed [facility] SARS-COV-2 COVID-19 PFIZER VACCINE 2020-11-21 00:00:00 Completed [facility] SARS-COV-2 COVID-19 PFIZER VACCINE 2020-11-21 00:00:00 Completed [facility] SARS-COV-2 COVID-19 PFIZER VACCINE 2020-11-21 00:00:00 Completed [facility] SARS-COV-2 COVID-19 PFIZER VACCINE 2020-11-21 00:00:00 Completed [facility] SARS-COV-2 COVID-19 PFIZER VACCINE 2020-11-21 00:00:00 Completed [facility] SARS-COV-2 COVID-19 PFIZER VACCINE 2020-11-21 00:00:00 Completed [facility] SARS-COV-2 COVID-19 PFIZER VACCINE 2020-11-21 00:00:00 Completed [facility] SARS-COV-2 COVID-19 PFIZER VACCINE 2020-11-21 00:00:00 Completed [facility] SARS-COV-2 COVID-19 PFIZER VACCINE 2020-11-21 00:00:00 Completed [facility] SARS-COV-2 COVID-19 PFIZER VACCINE 2020-11-21 00:00:00 Completed [facility] SARS-COV-2 COVID-19 PFIZER VACCINE 2020-11-21 00:00:00 Completed [facility] SARS-COV-2 COVID-19 PFIZER VACCINE 2020-11-21 00:00:00 Completed [facility] SARS-COV-2 COVID-19 PFIZER VACCINE 2020-11-21 00:00:00 Completed [facility] SARS-COV-2 COVID-19 PFIZER VACCINE 2020-11-21 00:00:00 Completed [facility] SARS-COV-2 COVID-19 PFIZER VACCINE 2020-11-21 00:00:00 Completed [facility] SARS-COV-2 COVID-19 PFIZER VACCINE 2020-11-21 00:00:00 Completed [facility] SARS-COV-2 COVID-19 PFIZER VACCINE 2020-11-21 00:00:00 Completed [facility] SARS-COV-2 COVID-19 PFIZER VACCINE 2020-11-21 00:00:00 Completed [facility] SARS-COV-2 COVID-19 PFIZER VACCINE 2020-11-21 00:00:00 Completed [facility] SARS-COV-2 COVID-19 PFIZER VACCINE 2020-11-21 00:00:00 Completed [facility] SARS-COV-2 COVID-19 PFIZER VACCINE 2020-11-21 00:00:00 Completed [facility] SARS-COV-2 COVID-19 PFIZER VACCINE 2020-10-31 00:00:00 Completed [facility] SARS-COV-2 COVID-19 PFIZER VACCINE 2020-10-31 00:00:00 Completed [facility] SARS-COV-2 COVID-19 PFIZER VACCINE 2020-10-31 00:00:00 Completed [facility] SARS-COV-2 COVID-19 PFIZER VACCINE 2020-10-31 00:00:00 Completed [facility] SARS-COV-2 COVID-19 PFIZER VACCINE 2020-10-31 00:00:00 Completed [facility] SARS-COV-2 COVID-19 PFIZER VACCINE 2020-10-31 00:00:00 Completed [facility] SARS-COV-2 COVID-19 PFIZER VACCINE 2020-10-31 00:00:00 Completed [facility] SARS-COV-2 COVID-19 PFIZER VACCINE 2020-10-31 00:00:00 Completed [facility] SARS-COV-2 COVID-19 PFIZER VACCINE 2020-10-31 00:00:00 Completed [facility] SARS-COV-2 COVID-19 PFIZER VACCINE 2020-10-31 00:00:00 Completed [facility] SARS-COV-2 COVID-19 PFIZER VACCINE 2020-10-31 00:00:00 Completed [facility] SARS-COV-2 COVID-19 PFIZER VACCINE 2020-10-31 00:00:00 Completed [facility] SARS-COV-2 COVID-19 PFIZER VACCINE 2020-10-31 00:00:00 Completed [facility] SARS-COV-2 COVID-19 PFIZER VACCINE 2020-10-31 00:00:00 Completed [facility] SARS-COV-2 COVID-19 PFIZER VACCINE 2020-10-31 00:00:00 Completed [facility] SARS-COV-2 COVID-19 PFIZER VACCINE 2020-10-31 00:00:00 Completed [facility] SARS-COV-2 COVID-19 PFIZER VACCINE 2020-10-31 00:00:00 Completed [facility] SARS-COV-2 COVID-19 PFIZER VACCINE 2020-10-31 00:00:00 Completed [facility] SARS-COV-2 COVID-19 PFIZER VACCINE 2020-10-31 00:00:00 Completed [facility] SARS-COV-2 COVID-19 PFIZER VACCINE 2020-10-31 00:00:00 Completed [facility] SARS-COV-2 COVID-19 PFIZER VACCINE 2020-10-31 00:00:00 Completed [facility] SARS-COV-2 COVID-19 PFIZER VACCINE 2020-10-31 00:00:00 Completed [facility] SARS-COV-2 COVID-19 PFIZER VACCINE 2020-10-31 00:00:00 Completed [facility] SARS-COV-2 COVID-19 PFIZER VACCINE 2020-10-31 00:00:00 Completed [facility] SARS-COV-2 COVID-19 PFIZER VACCINE 2020-10-31 00:00:00 Completed [facility] SARS-COV-2 COVID-19 PFIZER VACCINE 2020-10-31 00:00:00 Completed [facility] SARS-COV-2 COVID-19 PFIZER VACCINE 2020-10-31 00:00:00 Completed [facility] SARS-COV-2 COVID-19 PFIZER VACCINE 2020-10-31 00:00:00 Completed [facility] SARS-COV-2 COVID-19 PFIZER VACCINE 2020-10-31 00:00:00 Completed [facility] SARS-COV-2 COVID-19 PFIZER VACCINE 2020-10-31 00:00:00 Completed [facility] Influenza Virus Vaccine Quad .5 mL IM 6+ MO 2020-08-13 00:00:00 Completed [facility] Influenza Virus Vaccine Quad .5 mL IM 6+ MO 2020-08-13 00:00:00 Completed [facility] Influenza Virus Vaccine Quad .5 mL IM 6+ MO 2020-08-13 00:00:00 Completed [facility] Influenza Virus Vaccine Quad .5 mL IM 6+ MO 2020-08-13 00:00:00 Completed [facility] Influenza Virus Vaccine Quad .5 mL IM 6+ MO 2020-08-13 00:00:00 Completed [facility] Influenza Virus Vaccine Quad .5 mL IM 6+ MO 2020-08-13 00:00:00 Completed [facility] Influenza Virus Vaccine Quad .5 mL IM 6+ MO 2020-08-13 00:00:00 Completed [facility] Influenza Virus Vaccine Quad .5 mL IM 6+ MO 2020-08-13 00:00:00 Completed [facility] Influenza Virus Vaccine Quad .5 mL IM 6+ MO 2020-08-13 00:00:00 Completed [facility] Influenza Virus Vaccine Quad .5 mL IM 6+ MO 2020-08-13 00:00:00 Completed [facility] Influenza Virus Vaccine Quad .5 mL IM 6+ MO 2020-08-13 00:00:00 Completed [facility] Influenza Virus Vaccine Quad .5 mL IM 6+ MO 2020-08-13 00:00:00 Completed [facility] Influenza Virus Vaccine Quad .5 mL IM 6+ MO 2020-08-13 00:00:00 Completed [facility] Influenza Virus Vaccine Quad .5 mL IM 6+ MO 2020-08-13 00:00:00 Completed [facility] Influenza Virus Vaccine Quad .5 mL IM 6+ MO 2020-08-13 00:00:00 Completed [facility] Influenza Virus Vaccine Quad .5 mL IM 6+ MO 2020-08-13 00:00:00 Completed [facility] Influenza Virus Vaccine Quad .5 mL IM 6+ MO 2020-08-13 00:00:00 Completed [facility] Influenza Virus Vaccine Quad .5 mL IM 6+ MO 2020-08-13 00:00:00 Completed [facility] Influenza Virus Vaccine Quad .5 mL IM 6+ MO 2020-08-13 00:00:00 Completed [facility] Influenza Virus Vaccine Quad .5 mL IM 6+ MO 2020-08-13 00:00:00 Completed [facility] Influenza Virus Vaccine Quad .5 mL IM 6+ MO 2020-08-13 00:00:00 Completed [facility] Influenza Virus Vaccine Quad .5 mL IM 6+ MO 2020-08-13 00:00:00 Completed [facility] Influenza Virus Vaccine Quad .5 mL IM 6+ MO 2020-08-13 00:00:00 Completed [facility] Influenza Virus Vaccine Quad .5 mL IM 6+ MO 2020-08-13 00:00:00 Completed [facility] Influenza Virus Vaccine Quad .5 mL IM 6+ MO 2020-08-13 00:00:00 Completed [facility] Influenza Virus Vaccine Quad .5 mL IM 6+ MO 2020-08-13 00:00:00 Completed [facility] Influenza Virus Vaccine Quad .5 mL IM 6+ MO 2020-08-13 00:00:00 Completed [facility] Influenza Virus Vaccine Quad .5 mL IM 6+ MO 2020-08-13 00:00:00 Completed [facility] Influenza Virus Vaccine Quad .5 mL IM 6+ MO 2020-08-13 00:00:00 Completed [facility] Influenza Virus Vaccine Quad .5 mL IM 6+ MO 2020-08-13 00:00:00 Completed [facility] Pneumococcal 13 Conjugate, PCV13 (Prevnar 13) 2019-08-11 00:00:00 Completed [facility] Influenza High Dose 2019-08-11 00:00:00 Completed [facility] Pneumococcal 13 Conjugate, PCV13 (Prevnar 13) 2019-08-11 00:00:00 Completed [facility] Influenza High Dose 2019-08-11 00:00:00 Completed [facility] Pneumococcal 13 Conjugate, PCV13 (Prevnar 13) 2019-08-11 00:00:00 Completed [facility] Influenza High Dose 2019-08-11 00:00:00 Completed [facility] Pneumococcal 13 Conjugate, PCV13 (Prevnar 13) 2019-08-11 00:00:00 Completed [facility] Influenza High Dose 2019-08-11 00:00:00 Completed [facility] Pneumococcal 13 Conjugate, PCV13 (Prevnar 13) 2019-08-11 00:00:00 Completed [facility] Influenza High Dose 2019-08-11 00:00:00 Completed [facility] Pneumococcal 13 Conjugate, PCV13 (Prevnar 13) 2019-08-11 00:00:00 Completed [facility] Influenza High Dose 2019-08-11 00:00:00 Completed [facility] Pneumococcal 13 Conjugate, PCV13 (Prevnar 13) 2019-08-11 00:00:00 Completed [facility] Influenza High Dose 2019-08-11 00:00:00 Completed [facility] Pneumococcal 13 Conjugate, PCV13 (Prevnar 13) 2019-08-11 00:00:00 Completed [facility] Influenza High Dose 2019-08-11 00:00:00 Completed [facility] Pneumococcal 13 Conjugate, PCV13 (Prevnar 13) 2019-08-11 00:00:00 Completed [facility] Influenza High Dose 2019-08-11 00:00:00 Completed [facility] Pneumococcal 13 Conjugate, PCV13 (Prevnar 13) 2019-08-11 00:00:00 Completed [facility] Influenza High Dose 2019-08-11 00:00:00 Completed [facility] Pneumococcal 13 Conjugate, PCV13 (Prevnar 13) 2019-08-11 00:00:00 Completed [facility] Influenza High Dose 2019-08-11 00:00:00 Completed [facility] Pneumococcal 13 Conjugate, PCV13 (Prevnar 13) 2019-08-11 00:00:00 Completed [facility] Influenza High Dose 2019-08-11 00:00:00 Completed [facility] Pneumococcal 13 Conjugate, PCV13 (Prevnar 13) 2019-08-11 00:00:00 Completed [facility] Influenza High Dose 2019-08-11 00:00:00 Completed [facility] Pneumococcal 13 Conjugate, PCV13 (Prevnar 13) 2019-08-11 00:00:00 Completed [facility] Influenza High Dose 2019-08-11 00:00:00 Completed [facility] Pneumococcal 13 Conjugate, PCV13 (Prevnar 13) 2019-08-11 00:00:00 Completed [facility] Influenza High Dose 2019-08-11 00:00:00 Completed [facility] Pneumococcal 13 Conjugate, PCV13 (Prevnar 13) 2019-08-11 00:00:00 Completed [facility] Influenza High Dose 2019-08-11 00:00:00 Completed [facility] Pneumococcal 13 Conjugate, PCV13 (Prevnar 13) 2019-08-11 00:00:00 Completed [facility] Influenza High Dose 2019-08-11 00:00:00 Completed [facility] Pneumococcal 13 Conjugate, PCV13 (Prevnar 13) 2019-08-11 00:00:00 Completed [facility] Influenza High Dose 2019-08-11 00:00:00 Completed [facility] Pneumococcal 13 Conjugate, PCV13 (Prevnar 13) 2019-08-11 00:00:00 Completed [facility] Influenza High Dose 2019-08-11 00:00:00 Completed [facility] Pneumococcal 13 Conjugate, PCV13 (Prevnar 13) 2019-08-11 00:00:00 Completed [facility] Influenza High Dose 2019-08-11 00:00:00 Completed [facility] Pneumococcal 13 Conjugate, PCV13 (Prevnar 13) 2019-08-11 00:00:00 Completed [facility] Influenza High Dose 2019-08-11 00:00:00 Completed [facility] Pneumococcal 13 Conjugate, PCV13 (Prevnar 13) 2019-08-11 00:00:00 Completed [facility] Influenza High Dose 2019-08-11 00:00:00 Completed [facility] Pneumococcal 13 Conjugate, PCV13 (Prevnar 13) 2019-08-11 00:00:00 Completed [facility] Influenza High Dose 2019-08-11 00:00:00 Completed [facility] Pneumococcal 13 Conjugate, PCV13 (Prevnar 13) 2019-08-11 00:00:00 Completed [facility] Influenza High Dose 2019-08-11 00:00:00 Completed [facility] Pneumococcal 13 Conjugate, PCV13 (Prevnar 13) 2019-08-11 00:00:00 Completed [facility] Influenza High Dose 2019-08-11 00:00:00 Completed [facility] Pneumococcal 13 Conjugate, PCV13 (Prevnar 13) 2019-08-11 00:00:00 Completed [facility] Influenza High Dose 2019-08-11 00:00:00 Completed [facility] Pneumococcal 13 Conjugate, PCV13 (Prevnar 13) 2019-08-11 00:00:00 Completed [facility] Influenza High Dose 2019-08-11 00:00:00 Completed [facility] Pneumococcal 13 Conjugate, PCV13 (Prevnar 13) 2019-08-11 00:00:00 Completed [facility] Influenza High Dose 2019-08-11 00:00:00 Completed [facility] Pneumococcal 13 Conjugate, PCV13 (Prevnar 13) 2019-08-11 00:00:00 Completed [facility] Influenza High Dose 2019-08-11 00:00:00 Completed [facility] Pneumococcal 13 Conjugate, PCV13 (Prevnar 13) 2019-08-11 00:00:00 Completed [facility] Influenza High Dose 2019-08-11 00:00:00 Completed [facility] Influenza High Dose 2018-10-15 00:00:00 Completed [facility] Influenza High Dose 2018-10-15 00:00:00 Completed [facility] Influenza High Dose 2018-10-15 00:00:00 Completed [facility] Influenza High Dose 2018-10-15 00:00:00 Completed [facility] Influenza High Dose 2018-10-15 00:00:00 Completed [facility] Influenza High Dose 2018-10-15 00:00:00 Completed [facility] Influenza High Dose 2018-10-15 00:00:00 Completed [facility] Influenza High Dose 2018-10-15 00:00:00 Completed [facility] Influenza High Dose 2018-10-15 00:00:00 Completed [facility] Influenza High Dose 2018-10-15 00:00:00 Completed [facility] Influenza High Dose 2018-10-15 00:00:00 Completed [facility] Influenza High Dose 2018-10-15 00:00:00 Completed [facility] Influenza High Dose 2018-10-15 00:00:00 Completed [facility] Influenza High Dose 2018-10-15 00:00:00 Completed [facility] Influenza High Dose 2018-10-15 00:00:00 Completed [facility] Influenza High Dose 2018-10-15 00:00:00 Completed [facility] Influenza High Dose 2018-10-15 00:00:00 Completed [facility] Influenza High Dose 2018-10-15 00:00:00 Completed [facility] Influenza High Dose 2018-10-15 00:00:00 Completed [facility] Influenza High Dose 2018-10-15 00:00:00 Completed [facility] Influenza High Dose 2018-10-15 00:00:00 Completed [facility] Influenza High Dose 2018-10-15 00:00:00 Completed [facility] Influenza High Dose 2018-10-15 00:00:00 Completed [facility] Influenza High Dose 2018-10-15 00:00:00 Completed [facility] Influenza High Dose 2018-10-15 00:00:00 Completed [facility] Influenza High Dose 2018-10-15 00:00:00 Completed [facility] Influenza High Dose 2018-10-15 00:00:00 Completed [facility] Influenza High Dose 2018-10-15 00:00:00 Completed [facility] Influenza High Dose 2018-10-15 00:00:00 Completed [facility] Influenza High Dose 2018-10-15 00:00:00 Completed [facility] Influenza High Dose Unknown Completed [facility] Influenza High Dose Unknown Completed [facility] Pneumococcal 13 Conjugate, PCV13 (Prevnar 13) Unknown Completed [facility] Influenza Virus Vaccine Quad .5 mL IM 6+ MO (FLUZONE/FLULAVAL/F LUARIX) Unknown Completed [facility] SARS-COV-2 COVID-19 PFIZER VACCINE Unknown Completed [facility] SARS-COV-2 COVID-19 PFIZER VACCINE Unknown Completed [facility] SARS-COV-2 COVID-19 PFIZER VACCINE Unknown Completed [facility] Pneumococcal Polysaccharide, PPSV23 (PNEUMOVAX) Unknown Completed [facility] Influenza Virus Vaccine,quad Im,preserve Free 65+ (FLUAD) Unknown Completed [facility] TDAP Unknown Completed [facility] Influenza High Dose Unknown Completed [facility] Influenza High Dose Unknown Completed [facility] Pneumococcal 13 Conjugate, PCV13 (Prevnar 13) Unknown Completed [facility] Influenza Virus Vaccine Quad .5 mL IM 6+ MO (FLUZONE/FLULAVAL/F LUARIX) Unknown Completed [facility] SARS-COV-2 COVID-19 PFIZER VACCINE Unknown Completed [facility] SARS-COV-2 COVID-19 PFIZER VACCINE Unknown Completed [facility] SARS-COV-2 COVID-19 PFIZER VACCINE Unknown Completed [facility] Pneumococcal Polysaccharide, PPSV23 (PNEUMOVAX) Unknown Completed [facility] Influenza Virus Vaccine,quad Im,preserve Free 65+ (FLUAD) Unknown Completed [facility] TDAP Unknown Completed [facility] Influenza High Dose Unknown Completed [facility] Influenza High Dose Unknown Completed [facility] Pneumococcal 13 Conjugate, PCV13 (Prevnar 13) Unknown Completed [facility] Influenza Virus Vaccine Quad .5 mL IM 6+ MO (FLUZONE/FLULAVAL/F LUARIX) Unknown Completed [facility] SARS-COV-2 COVID-19 PFIZER VACCINE Unknown Completed [facility] SARS-COV-2 COVID-19 PFIZER VACCINE Unknown Completed [facility] SARS-COV-2 COVID-19 PFIZER VACCINE Unknown Completed [facility] Pneumococcal Polysaccharide, PPSV23 (PNEUMOVAX) Unknown Completed [facility] Influenza Virus Vaccine,quad Im,preserve Free 65+ (FLUAD) Unknown Completed [facility] TDAP Unknown Completed [facility] Influenza High Dose Unknown Completed [facility] Influenza High Dose Unknown Completed [facility] Pneumococcal 13 Conjugate, PCV13 (Prevnar 13) Unknown Completed [facility] Influenza Virus Vaccine Quad .5 mL IM 6+ MO (FLUZONE/FLULAVAL/F LUARIX) Unknown Completed [facility] SARS-COV-2 COVID-19 PFIZER VACCINE Unknown Completed [facility] SARS-COV-2 COVID-19 PFIZER VACCINE Unknown Completed [facility] SARS-COV-2 COVID-19 PFIZER VACCINE Unknown Completed [facility] Pneumococcal Polysaccharide, PPSV23 (PNEUMOVAX) Unknown Completed [facility] Influenza Virus Vaccine,quad Im,preserve Free 65+ (FLUAD) Unknown Completed [facility] TDAP Unknown Completed [facility] Influenza High Dose Unknown Completed [facility] Influenza High Dose Unknown Completed [facility] Pneumococcal 13 Conjugate, PCV13 (Prevnar 13) Unknown Completed [facility] Influenza Virus Vaccine Quad .5 mL IM 6+ MO (FLUZONE/FLULAVAL/F LUARIX) Unknown Completed [facility] SARS-COV-2 COVID-19 PFIZER VACCINE Unknown Completed [facility] SARS-COV-2 COVID-19 PFIZER VACCINE Unknown Completed [facility] SARS-COV-2 COVID-19 PFIZER VACCINE Unknown Completed [facility] Pneumococcal Polysaccharide, PPSV23 (PNEUMOVAX) Unknown Completed [facility] Influenza Virus Vaccine,quad Im,preserve Free 65+ (FLUAD) Unknown Completed [facility] TDAP Unknown Completed [facility] Influenza High Dose Unknown Completed [facility] Influenza High Dose Unknown Completed [facility] Pneumococcal 13 Conjugate, PCV13 (Prevnar 13) Unknown Completed [facility] Influenza Virus Vaccine Quad .5 mL IM 6+ MO (FLUZONE/FLULAVAL/F LUARIX) Unknown Completed [facility] SARS-COV-2 COVID-19 PFIZER VACCINE Unknown Completed [facility] SARS-COV-2 COVID-19 PFIZER VACCINE Unknown Completed [facility] SARS-COV-2 COVID-19 PFIZER VACCINE Unknown Completed [facility] Pneumococcal Polysaccharide, PPSV23 (PNEUMOVAX) Unknown Completed [facility] Influenza Virus Vaccine,quad Im,preserve Free 65+ (FLUAD) Unknown Completed [facility] TDAP Unknown Completed [facility] Influenza High Dose Unknown Completed [facility] Influenza High Dose Unknown Completed [facility] Pneumococcal 13 Conjugate, PCV13 (Prevnar 13) Unknown Completed [facility] Influenza Virus Vaccine Quad .5 mL IM 6+ MO (FLUZONE/FLULAVAL/F LUARIX) Unknown Completed [facility] SARS-COV-2 COVID-19 PFIZER VACCINE Unknown Completed [facility] SARS-COV-2 COVID-19 PFIZER VACCINE Unknown Completed [facility] SARS-COV-2 COVID-19 PFIZER VACCINE Unknown Completed [facility] Pneumococcal Polysaccharide, PPSV23 (PNEUMOVAX) Unknown Completed [facility] Influenza Virus Vaccine,quad Im,preserve Free 65+ (FLUAD) Unknown Completed [facility] TDAP Unknown Completed [facility] Influenza High Dose Unknown Completed [facility] Influenza High Dose Unknown Completed [facility] Pneumococcal 13 Conjugate, PCV13 (Prevnar 13) Unknown Completed [facility] Influenza Virus Vaccine Quad .5 mL IM 6+ MO (FLUZONE/FLULAVAL/F LUARIX) Unknown Completed [facility] SARS-COV-2 COVID-19 PFIZER VACCINE Unknown Completed [facility] SARS-COV-2 COVID-19 PFIZER VACCINE Unknown Completed [facility] SARS-COV-2 COVID-19 PFIZER VACCINE Unknown Completed [facility] Pneumococcal Polysaccharide, PPSV23 (PNEUMOVAX) Unknown Completed [facility] Influenza Virus Vaccine,quad Im,preserve Free 65+ (FLUAD) Unknown Completed [facility] TDAP Unknown Completed [facility] Influenza High Dose Quad Unknown Completed [facility] Influenza High Dose Unknown Completed [facility] Influenza High Dose Unknown Completed [facility] Pneumococcal 13 Conjugate, PCV13 (Prevnar 13) Unknown Completed [facility] Influenza Virus Vaccine Quad .5 mL IM 6+ MO (FLUZONE/FLULAVAL/F LUARIX) Unknown Completed [facility] SARS-COV-2 COVID-19 PFIZER VACCINE Unknown Completed [facility] SARS-COV-2 COVID-19 PFIZER VACCINE Unknown Completed [facility] SARS-COV-2 COVID-19 PFIZER VACCINE Unknown Completed [facility] Pneumococcal Polysaccharide, PPSV23 (PNEUMOVAX) Unknown Completed [facility] Influenza Virus Vaccine,quad Im,preserve Free 65+ (FLUAD) Unknown Completed [facility] TDAP Unknown Completed [facility] Influenza High Dose Quad Unknown Completed [facility] Influenza High Dose Unknown Completed [facility] Influenza High Dose Unknown Completed [facility] Pneumococcal 13 Conjugate, PCV13 (Prevnar 13) Unknown Completed [facility] Influenza Virus Vaccine Quad .5 mL IM 6+ MO (FLUZONE/FLULAVAL/F LUARIX) Unknown Completed [facility] SARS-COV-2 COVID-19 PFIZER VACCINE Unknown Completed [facility] SARS-COV-2 COVID-19 PFIZER VACCINE Unknown Completed [facility] SARS-COV-2 COVID-19 PFIZER VACCINE Unknown Completed [facility] Pneumococcal Polysaccharide, PPSV23 (PNEUMOVAX) Unknown Completed [facility] Influenza Virus Vaccine,quad Im,preserve Free 65+ (FLUAD) Unknown Completed [facility] TDAP Unknown Completed [facility] Influenza High Dose Quad Unknown Completed [facility] Influenza High Dose Unknown Completed [facility] Influenza High Dose Unknown Completed [facility] Pneumococcal 13 Conjugate, PCV13 (Prevnar 13) Unknown Completed [facility] Influenza Virus Vaccine Quad .5 mL IM 6+ MO (FLUZONE/FLULAVAL/F LUARIX) Unknown Completed [facility] SARS-COV-2 COVID-19 PFIZER VACCINE Unknown Completed [facility] SARS-COV-2 COVID-19 PFIZER VACCINE Unknown Completed [facility] SARS-COV-2 COVID-19 PFIZER VACCINE Unknown Completed [facility] Pneumococcal Polysaccharide, PPSV23 (PNEUMOVAX) Unknown Completed [facility] Influenza Virus Vaccine,quad Im,preserve Free 65+ (FLUAD) Unknown Completed [facility] TDAP Unknown Completed [facility] Influenza High Dose Quad Unknown Completed [facility] Influenza High Dose Unknown Completed [facility] Influenza High Dose Unknown Completed [facility] Pneumococcal 13 Conjugate, PCV13 (Prevnar 13) Unknown Completed [facility] Influenza Virus Vaccine Quad .5 mL IM 6+ MO (FLUZONE/FLULAVAL/F LUARIX) Unknown Completed [facility] SARS-COV-2 COVID-19 PFIZER VACCINE Unknown Completed [facility] SARS-COV-2 COVID-19 PFIZER VACCINE Unknown Completed [facility] SARS-COV-2 COVID-19 PFIZER VACCINE Unknown Completed [facility] Pneumococcal Polysaccharide, PPSV23 (PNEUMOVAX) Unknown Completed [facility] Influenza Virus Vaccine,quad Im,preserve Free 65+ (FLUAD) Unknown Completed [facility] TDAP Unknown Completed [facility] Influenza High Dose Quad Unknown Completed [facility] Influenza High Dose Unknown Completed [facility] Influenza High Dose Unknown Completed [facility] Pneumococcal 13 Conjugate, PCV13 (Prevnar 13) Unknown Completed [facility] Influenza Virus Vaccine Quad .5 mL IM 6+ MO (FLUZONE/FLULAVAL/F LUARIX) Unknown Completed [facility] SARS-COV-2 COVID-19 PFIZER VACCINE Unknown Completed [facility] SARS-COV-2 COVID-19 PFIZER VACCINE Unknown Completed [facility] SARS-COV-2 COVID-19 PFIZER VACCINE Unknown Completed [facility] Pneumococcal Polysaccharide, PPSV23 (PNEUMOVAX) Unknown Completed [facility] Influenza Virus Vaccine,quad Im,preserve Free 65+ (FLUAD) Unknown Completed [facility] TDAP Unknown Completed [facility] Influenza High Dose Quad Unknown Completed [facility] Influenza High Dose Unknown Completed [facility] Influenza High Dose Unknown Completed [facility] Pneumococcal 13 Conjugate, PCV13 (Prevnar 13) Unknown Completed [facility] Influenza Virus Vaccine Quad .5 mL IM 6+ MO (FLUZONE/FLULAVAL/F LUARIX) Unknown Completed [facility] SARS-COV-2 COVID-19 PFIZER VACCINE Unknown Completed [facility] SARS-COV-2 COVID-19 PFIZER VACCINE Unknown Completed [facility] SARS-COV-2 COVID-19 PFIZER VACCINE Unknown Completed [facility] Pneumococcal Polysaccharide, PPSV23 (PNEUMOVAX) Unknown Completed [facility] Influenza Virus Vaccine,quad Im,preserve Free 65+ (FLUAD) Unknown Completed [facility] TDAP Unknown Completed [facility] Influenza High Dose Quad Unknown Completed [facility] Influenza High Dose Unknown Completed [facility] Influenza High Dose Unknown Completed [facility] Pneumococcal 13 Conjugate, PCV13 (Prevnar 13) Unknown Completed [facility] Influenza Virus Vaccine Quad .5 mL IM 6+ MO (FLUZONE/FLULAVAL/F LUARIX) Unknown Completed [facility] SARS-COV-2 COVID-19 PFIZER VACCINE Unknown Completed [facility] SARS-COV-2 COVID-19 PFIZER VACCINE Unknown Completed [facility] SARS-COV-2 COVID-19 PFIZER VACCINE Unknown Completed [facility] Pneumococcal Polysaccharide, PPSV23 (PNEUMOVAX) Unknown Completed [facility] Influenza Virus Vaccine,quad Im,preserve Free 65+ (FLUAD) Unknown Completed [facility] TDAP Unknown Completed [facility] Influenza High Dose Quad Unknown Completed [facility] Influenza High Dose Unknown Completed [facility] Influenza High Dose Unknown Completed [facility] Pneumococcal 13 Conjugate, PCV13 (Prevnar 13) Unknown Completed [facility] Influenza Virus Vaccine Quad .5 mL IM 6+ MO (FLUZONE/FLULAVAL/F LUARIX) Unknown Completed [facility] SARS-COV-2 COVID-19 PFIZER VACCINE Unknown Completed [facility] SARS-COV-2 COVID-19 PFIZER VACCINE Unknown Completed [facility] SARS-COV-2 COVID-19 PFIZER VACCINE Unknown Completed [facility] Pneumococcal Polysaccharide, PPSV23 (PNEUMOVAX) Unknown Completed [facility] Influenza Virus Vaccine,quad Im,preserve Free 65+ (FLUAD) Unknown Completed [facility] TDAP Unknown Completed [facility] Influenza High Dose Quad Unknown Completed [facility] Influenza High Dose Unknown Completed [facility] Influenza High Dose Unknown Completed [facility] Pneumococcal 13 Conjugate, PCV13 (Prevnar 13) Unknown Completed [facility] Influenza Virus Vaccine Quad .5 mL IM 6+ MO (FLUZONE/FLULAVAL/F LUARIX) Unknown Completed [facility] SARS-COV-2 COVID-19 PFIZER VACCINE Unknown Completed [facility] SARS-COV-2 COVID-19 PFIZER VACCINE Unknown Completed [facility] SARS-COV-2 COVID-19 PFIZER VACCINE Unknown Completed [facility] Pneumococcal Polysaccharide, PPSV23 (PNEUMOVAX) Unknown Completed [facility] Influenza Virus Vaccine,quad Im,preserve Free 65+ (FLUAD) Unknown Completed [facility] TDAP Unknown Completed [facility] Influenza High Dose Quad Unknown Completed [facility] Influenza High Dose Unknown Completed [facility] Influenza High Dose Unknown Completed [facility] Pneumococcal 13 Conjugate, PCV13 (Prevnar 13) Unknown Completed [facility] Influenza Virus Vaccine Quad .5 mL IM 6+ MO (FLUZONE/FLULAVAL/F LUARIX) Unknown Completed [facility] SARS-COV-2 COVID-19 PFIZER VACCINE Unknown Completed [facility] SARS-COV-2 COVID-19 PFIZER VACCINE Unknown Completed [facility] SARS-COV-2 COVID-19 PFIZER VACCINE Unknown Completed [facility] Pneumococcal Polysaccharide, PPSV23 (PNEUMOVAX) Unknown Completed [facility] Influenza Virus Vaccine,quad Im,preserve Free 65+ (FLUAD) Unknown Completed [facility] TDAP Unknown Completed [facility] Influenza High Dose Quad Unknown Completed [facility] Influenza High Dose Unknown Completed [facility] Influenza High Dose Unknown Completed [facility] Pneumococcal 13 Conjugate, PCV13 (Prevnar 13) Unknown Completed [facility] Influenza Virus Vaccine Quad .5 mL IM 6+ MO (FLUZONE/FLULAVAL/F LUARIX) Unknown Completed [facility] SARS-COV-2 COVID-19 PFIZER VACCINE Unknown Completed [facility] SARS-COV-2 COVID-19 PFIZER VACCINE Unknown Completed [facility] SARS-COV-2 COVID-19 PFIZER VACCINE Unknown Completed [facility] Pneumococcal Polysaccharide, PPSV23 (PNEUMOVAX) Unknown Completed [facility] Influenza Virus Vaccine,quad Im,preserve Free 65+ (FLUAD) Unknown Completed [facility] TDAP Unknown Completed [facility] Influenza High Dose Quad Unknown Completed [facility] Influenza High Dose Unknown Completed [facility] Influenza High Dose Unknown Completed [facility] Pneumococcal 13 Conjugate, PCV13 (Prevnar 13) Unknown Completed [facility] Influenza Virus Vaccine Quad .5 mL IM 6+ MO (FLUZONE/FLULAVAL/F LUARIX) Unknown Completed [facility] SARS-COV-2 COVID-19 PFIZER VACCINE Unknown Completed [facility] SARS-COV-2 COVID-19 PFIZER VACCINE Unknown Completed [facility] SARS-COV-2 COVID-19 PFIZER VACCINE Unknown Completed [facility] Pneumococcal Polysaccharide, PPSV23 (PNEUMOVAX) Unknown Completed [facility] Influenza Virus Vaccine,quad Im,preserve Free 65+ (FLUAD) Unknown Completed [facility] TDAP Unknown Completed [facility] Influenza High Dose Quad Unknown Completed [facility] Influenza High Dose Unknown Completed [facility] Influenza High Dose Unknown Completed [facility] Pneumococcal 13 Conjugate, PCV13 (Prevnar 13) Unknown Completed [facility] Influenza Virus Vaccine Quad .5 mL IM 6+ MO (FLUZONE/FLULAVAL/F LUARIX) Unknown Completed [facility] SARS-COV-2 COVID-19 PFIZER VACCINE Unknown Completed [facility] SARS-COV-2 COVID-19 PFIZER VACCINE Unknown Completed [facility] SARS-COV-2 COVID-19 PFIZER VACCINE Unknown Completed [facility] Pneumococcal Polysaccharide, PPSV23 (PNEUMOVAX) Unknown Completed [facility] Influenza Virus Vaccine,quad Im,preserve Free 65+ (FLUAD) Unknown Completed [facility] TDAP Unknown Completed [facility] Influenza High Dose Quad Unknown Completed [facility] Influenza High Dose Unknown Completed [facility] Influenza High Dose Unknown Completed [facility] Pneumococcal 13 Conjugate, PCV13 (Prevnar 13) Unknown Completed [facility] Influenza Virus Vaccine Quad .5 mL IM 6+ MO (FLUZONE/FLULAVAL/F LUARIX) Unknown Completed [facility] SARS-COV-2 COVID-19 PFIZER VACCINE Unknown Completed [facility] SARS-COV-2 COVID-19 PFIZER VACCINE Unknown Completed [facility] SARS-COV-2 COVID-19 PFIZER VACCINE Unknown Completed [facility] Pneumococcal Polysaccharide, PPSV23 (PNEUMOVAX) Unknown Completed [facility] Influenza Virus Vaccine,quad Im,preserve Free 65+ (FLUAD) Unknown Completed [facility] TDAP Unknown Completed [facility] Influenza High Dose Quad Unknown Completed [facility] Influenza High Dose Unknown Completed [facility] Influenza High Dose Unknown Completed [facility] Pneumococcal 13 Conjugate, PCV13 (Prevnar 13) Unknown Completed [facility] Influenza Virus Vaccine Quad .5 mL IM 6+ MO (FLUZONE/FLULAVAL/F LUARIX) Unknown Completed [facility] SARS-COV-2 COVID-19 PFIZER VACCINE Unknown Completed [facility] SARS-COV-2 COVID-19 PFIZER VACCINE Unknown Completed [facility] SARS-COV-2 COVID-19 PFIZER VACCINE Unknown Completed [facility] Pneumococcal Polysaccharide, PPSV23 (PNEUMOVAX) Unknown Completed [facility] Influenza Virus Vaccine,quad Im,preserve Free 65+ (FLUAD) Unknown Completed [facility] TDAP Unknown Completed [facility] Influenza High Dose Quad Unknown Completed [facility] Influenza High Dose Unknown Completed [facility] Influenza High Dose Unknown Completed [facility] Pneumococcal 13 Conjugate, PCV13 (Prevnar 13) Unknown Completed [facility] Influenza Virus Vaccine Quad .5 mL IM 6+ MO (FLUZONE/FLULAVAL/F LUARIX) Unknown Completed [facility] SARS-COV-2 COVID-19 PFIZER VACCINE Unknown Completed [facility] SARS-COV-2 COVID-19 PFIZER VACCINE Unknown Completed [facility] SARS-COV-2 COVID-19 PFIZER VACCINE Unknown Completed [facility] Pneumococcal Polysaccharide, PPSV23 (PNEUMOVAX) Unknown Completed [facility] Influenza Virus Vaccine,quad Im,preserve Free 65+ (FLUAD) Unknown Completed [facility] TDAP Unknown Completed [facility] Influenza High Dose Quad Unknown Completed [facility] Influenza High Dose Unknown Completed [facility] Influenza High Dose Unknown Completed [facility] Pneumococcal 13 Conjugate, PCV13 (Prevnar 13) Unknown Completed [facility] Influenza Virus Vaccine Quad .5 mL IM 6+ MO (FLUZONE/FLULAVAL/F LUARIX) Unknown Completed [facility] SARS-COV-2 COVID-19 PFIZER VACCINE Unknown Completed [facility] SARS-COV-2 COVID-19 PFIZER VACCINE Unknown Completed [facility] SARS-COV-2 COVID-19 PFIZER VACCINE Unknown Completed [facility] Pneumococcal Polysaccharide, PPSV23 (PNEUMOVAX) Unknown Completed [facility] Influenza Virus Vaccine,quad Im,preserve Free 65+ (FLUAD) Unknown Completed [facility] TDAP Unknown Completed [facility] Influenza High Dose Quad Unknown Completed [facility] Influenza High Dose Unknown Completed [facility] Influenza High Dose Unknown Completed [facility] Pneumococcal 13 Conjugate, PCV13 (Prevnar 13) Unknown Completed [facility] Influenza Virus Vaccine Quad .5 mL IM 6+ MO (FLUZONE/FLULAVAL/F LUARIX) Unknown Completed [facility] SARS-COV-2 COVID-19 PFIZER VACCINE Unknown Completed [facility] SARS-COV-2 COVID-19 PFIZER VACCINE Unknown Completed [facility] SARS-COV-2 COVID-19 PFIZER VACCINE Unknown Completed [facility] Pneumococcal Polysaccharide, PPSV23 (PNEUMOVAX) Unknown Completed [facility] Influenza Virus Vaccine,quad Im,preserve Free 65+ (FLUAD) Unknown Completed [facility] TDAP Unknown Completed [facility] Influenza High Dose Quad Unknown Completed [facility] Influenza High Dose Unknown Completed [facility] Influenza High Dose Unknown Completed [facility] Pneumococcal 13 Conjugate, PCV13 (Prevnar 13) Unknown Completed [facility] Influenza Virus Vaccine Quad .5 mL IM 6+ MO (FLUZONE/FLULAVAL/F LUARIX) Unknown Completed [facility] SARS-COV-2 COVID-19 PFIZER VACCINE Unknown Completed [facility] SARS-COV-2 COVID-19 PFIZER VACCINE Unknown Completed [facility] SARS-COV-2 COVID-19 PFIZER VACCINE Unknown Completed [facility] Pneumococcal Polysaccharide, PPSV23 (PNEUMOVAX) Unknown Completed [facility] Influenza Virus Vaccine,quad Im,preserve Free 65+ (FLUAD) Unknown Completed [facility] TDAP Unknown Completed [facility] Influenza High Dose Quad Unknown Completed [facility] Influenza High Dose Unknown Completed [facility] Influenza High Dose Unknown Completed [facility] Pneumococcal 13 Conjugate, PCV13 (Prevnar 13) Unknown Completed [facility] Influenza Virus Vaccine Quad .5 mL IM 6+ MO (FLUZONE/FLULAVAL/F LUARIX) Unknown Completed [facility] SARS-COV-2 COVID-19 PFIZER VACCINE Unknown Completed [facility] SARS-COV-2 COVID-19 PFIZER VACCINE Unknown Completed [facility] SARS-COV-2 COVID-19 PFIZER VACCINE Unknown Completed [facility] Pneumococcal Polysaccharide, PPSV23 (PNEUMOVAX) Unknown Completed [facility] Influenza Virus Vaccine,quad Im,preserve Free 65+ (FLUAD) Unknown Completed [facility] TDAP Unknown Completed [facility] Influenza High Dose Quad Unknown Completed [facility] Influenza High Dose Unknown Completed [facility] Influenza High Dose Unknown Completed [facility] Pneumococcal 13 Conjugate, PCV13 (Prevnar 13) Unknown Completed [facility] Influenza Virus Vaccine Quad .5 mL IM 6+ MO (FLUZONE/FLULAVAL/F LUARIX) Unknown Completed [facility] SARS-COV-2 COVID-19 PFIZER VACCINE Unknown Completed [facility] SARS-COV-2 COVID-19 PFIZER VACCINE Unknown Completed [facility] SARS-COV-2 COVID-19 PFIZER VACCINE Unknown Completed [facility] Pneumococcal Polysaccharide, PPSV23 (PNEUMOVAX) Unknown Completed [facility] Influenza Virus Vaccine,quad Im,preserve Free 65+ (FLUAD) Unknown Completed [facility] TDAP Unknown Completed [facility] Influenza High Dose Quad Unknown Completed [facility] Influenza High Dose Unknown Completed [facility] Influenza High Dose Unknown Completed [facility] Pneumococcal 13 Conjugate, PCV13 (Prevnar 13) Unknown Completed [facility] Influenza Virus Vaccine Quad .5 mL IM 6+ MO (FLUZONE/FLULAVAL/F LUARIX) Unknown Completed [facility] SARS-COV-2 COVID-19 PFIZER VACCINE Unknown Completed [facility] SARS-COV-2 COVID-19 PFIZER VACCINE Unknown Completed [facility] SARS-COV-2 COVID-19 PFIZER VACCINE Unknown Completed [facility] Pneumococcal Polysaccharide, PPSV23 (PNEUMOVAX) Unknown Completed [facility] Influenza Virus Vaccine,quad Im,preserve Free 65+ (FLUAD) Unknown Completed [facility] TDAP Unknown Completed [facility] Influenza High Dose Quad Unknown Completed [facility] Influenza High Dose Unknown Completed [facility] Influenza High Dose Unknown Completed [facility] Pneumococcal 13 Conjugate, PCV13 (Prevnar 13) Unknown Completed [facility] Influenza Virus Vaccine Quad .5 mL IM 6+ MO (FLUZONE/FLULAVAL/F LUARIX) Unknown Completed [facility] SARS-COV-2 COVID-19 PFIZER VACCINE Unknown Completed [facility] SARS-COV-2 COVID-19 PFIZER VACCINE Unknown Completed [facility] SARS-COV-2 COVID-19 PFIZER VACCINE Unknown Completed [facility] Pneumococcal Polysaccharide, PPSV23 (PNEUMOVAX) Unknown Completed [facility] Influenza Virus Vaccine,quad Im,preserve Free 65+ (FLUAD) Unknown Completed [facility] TDAP Unknown Completed [facility] Influenza High Dose Quad Unknown Completed [facility] Influenza High Dose Unknown Completed [facility] Influenza High Dose Unknown Completed [facility] Pneumococcal 13 Conjugate, PCV13 (Prevnar 13) Unknown Completed [facility] Influenza Virus Vaccine Quad .5 mL IM 6+ MO (FLUZONE/FLULAVAL/F LUARIX) Unknown Completed [facility] SARS-COV-2 COVID-19 PFIZER VACCINE Unknown Completed [facility] SARS-COV-2 COVID-19 PFIZER VACCINE Unknown Completed [facility] SARS-COV-2 COVID-19 PFIZER VACCINE Unknown Completed [facility] Pneumococcal Polysaccharide, PPSV23 (PNEUMOVAX) Unknown Completed [facility] Influenza Virus Vaccine,quad Im,preserve Free 65+ (FLUAD) Unknown Completed [facility] TDAP Unknown Completed [facility] Influenza High Dose Quad Unknown Completed [facility] Influenza High Dose Unknown Completed [facility] Influenza High Dose Unknown Completed [facility] Pneumococcal 13 Conjugate, PCV13 (Prevnar 13) Unknown Completed [facility] Influenza Virus Vaccine Quad .5 mL IM 6+ MO (FLUZONE/FLULAVAL/F LUARIX) Unknown Completed [facility] SARS-COV-2 COVID-19 PFIZER VACCINE Unknown Completed [facility] SARS-COV-2 COVID-19 PFIZER VACCINE Unknown Completed [facility] SARS-COV-2 COVID-19 PFIZER VACCINE Unknown Completed [facility] Pneumococcal Polysaccharide, PPSV23 (PNEUMOVAX) Unknown Completed [facility] Influenza Virus Vaccine,quad Im,preserve Free 65+ (FLUAD) Unknown Completed [facility] TDAP Unknown Completed [facility] Influenza High Dose Quad Unknown Completed [facility] Vital Signs Vital Name Observation Time Observation Value Comments S ource Systolic blood pressure 2024-03-13 20:08:00 113 mm[Hg] [facility] Diastolic blood pressure 2024-03-13 20:08:00 70 mm[Hg] [facility] Heart rate 2024-03-13 20:08:00 60 /min [facility] Body temperature 2024-03-13 20:08:00 36.78 Rachel [facility] Respiratory rate 2024-03-13 20:08:00 18 /min [facility] Body weight 2024-03-13 20:08:00 59.512 kg [facility] BMI 2024-03-13 20:08:00 26.50 kg/m2 [facility] Oxygen saturation in Arterial blood by Pulse oximetry 2024-03-13 20:08:00 98 /min [facility] Systolic blood pressure 2024-01-04 21:19:00 124 mm[Hg] [facility] Diastolic blood pressure 2024-01-04 21:19:00 62 mm[Hg] [facility] Heart rate 2024-01-04 21:19:00 60 /min [facility] Body temperature 2024-01-04 21:19:00 36.61 Rachel [facility] Respiratory rate 2024-01-04 21:19:00 16 /min [facility] Body weight 2024-01-04 21:19:00 61.236 kg [facility] BMI 2024-01-04 21:19:00 27.27 kg/m2 [facility] Oxygen saturation in Arterial blood by Pulse oximetry 2024-01-04 21:19:00 96 /min [facility] Systolic blood pressure 2023-07-28 21:04:00 162 mm[Hg] [facility] Diastolic blood pressure 2023-07-28 21:04:00 70 mm[Hg] [facility] Heart rate 2023-07-28 20:59:00 64 /min [facility] Respiratory rate 2023-07-28 20:59:00 18 /min [facility] Body height 2023-07-28 20:59:00 149.9 cm [facility] Body weight 2023-07-28 20:59:00 61.145 kg [facility] BMI 2023-07-28 20:59:00 27.23 kg/m2 [facility] Oxygen saturation in Arterial blood by Pulse oximetry 2023-07-28 20:59:00 95 /min [facility] Systolic blood pressure 2023-05-28 19:19:00 121 mm[Hg] [facility] Diastolic blood pressure 2023-05-28 19:19:00 51 mm[Hg] [facility] Heart rate 2023-05-28 19:19:00 82 /min [facility] Body temperature 2023-05-28 19:19:00 35.83 Rachel [facility] Body height 2023-05-28 19:19:00 149.9 cm [facility] Body weight 2023-05-28 19:19:00 60.374 kg [facility] BMI 2023-05-28 19:19:00 26.88 kg/m2 [facility] Oxygen saturation in Arterial blood by Pulse oximetry 2023-05-28 19:19:00 93 /min [facility] Systolic blood pressure 2023-01-20 21:04:00 124 mm[Hg] [facility] Diastolic blood pressure 2023-01-20 21:04:00 70 mm[Hg] [facility] Heart rate 2023-01-20 21:04:00 65 /min [facility] Body temperature 2023-01-20 21:04:00 36.89 Rachel [facility] Respiratory rate 2023-01-20 21:04:00 18 /min [facility] Body height 2023-01-20 21:04:00 149.9 cm [facility] Body weight 2023-01-20 21:04:00 58.559 kg [facility] BMI 2023-01-20 21:04:00 26.08 kg/m2 [facility] Oxygen saturation in Arterial blood by Pulse oximetry 2023-01-20 21:04:00 95 /min [facility] Systolic blood pressure 2022-07-14 04:49:00 137 mm[Hg] [facility] Diastolic blood pressure 2022-07-14 04:49:00 69 mm[Hg] [facility] Heart rate 2022-07-14 04:49:00 91 /min [facility] Respiratory rate 2022-07-14 04:49:00 17 /min [facility] Oxygen saturation in Arterial blood by Pulse oximetry 2022-07-14 04:49:00 98 /min [facility] Body temperature 2022-07-14 02:19:00 36.56 Rachel [facility] Body height 2022-07-14 02:19:00 149.9 cm [facility] Body weight 2022-07-14 02:19:00 58.06 kg [facility] BMI 2022-07-14 02:19:00 25.85 kg/m2 [facility] Procedures Procedure Date / Time Performed Performing Clinicia n Source POCT URINALYSIS 2024-03-13 00:00:00 [facility] PO[facility] URINALYSIS 2024-01-04 21:24:00 [facility] URINE CULTURE 2024-01-04 21:20:00 Melanie Hernandez [facility] TDAP VACCINE, >11 YRS, IM 2023-01-20 21:23:31 Erick Gasca [facility] ASSIGNMENT OF BENEFITS 2023-01-20 20:57:16 Docto r Unassigned, [place] [facility] CT MAXILLOFACIAL/MANDIBLE W CONTRAST 2022-07-14 04:19:35 Sruthi Mckeon [facility] URINALYSIS 2022-07-14 03:52:00 Sruthi Mckeon [facility] COMP. METABOLIC PANEL (89760) 2022-07-14 03:36:00 Sruthi Mckeon [facility] CBC WITH DIFF 2022-07-14 03:36:00 Sruthi Mckeon [facility] NOTICE OF PRIVACY PRACTICES 2022-07-14 02:03:50 Doctor Unassigned, [place] [facility] CONSENT/REFUSAL FOR DIAGNOSIS AND TREATMENT 2022-07-14 01:57:18 Doctor Unassigned, [place] [facility] Encounters Start Date/Time End Date/Time Encounter Type Admission Type Attending Clinicians Care Facility Care Department Encounter ID Source 2021-08-11 22:08:59 Emergency [facility] [id number] [facility] 2024-05-18 15:20:00 2024-05-18 15:20:00 Outpatient CRYSTAL FERNANDEZ [facility] [id number] [facility] 2024-05-11 00:00:00 2024-05-16 17:33:21 Refill E[facility]asc[facility] 1.2.840.114 350.1.13.10 4.2.7.2.686 [id number] [id number] [facility] 2024-05-04 00:00:00 2024-05-04 08:02:47 Refill Crystal Childs [facility] 1.2.840.114 350.1.13.10 4.2.7.2.686 [id number] [facility] 2024-05-03 13:30:00 2024-05-03 13:30:00 Outpatient REICK GRACIA [id number] [facility] 2024-04-28 15:00:00 2024-04-28 15:00:00 [facility] [id number] [facility]12 00:00:00 2024-04-21 07:26:14 Refill Erick Gasca [facility] NIRANJAN FISHER?[facility] 1.84.114 350.1.13.10 4.2.7.2.686 [id number] [facility] 2024-04-11 15:30:00 2024-04-11 15:30:00 Outpatient ERICK GRACIA CARMITA [id number] [facility] 2024-04-11 00:00:00 2024-04-11 00:00:00 Outpatient MAGGIEDENNYS CARMITA SARKAR [id number] [facility] 2024-04-05 00:00:00 2024-04-06 07:14:34 [facility] 1.840.114 350.1.13.10 4.2.7.2.686 [id number] [facility] 2024-02-15 00:00:00 2024-03-15 15:54:25 Refill Erick [facility]asc[facility] 1.84.114 350.1.13.10 4.2.7.2.686 [id number] [id number] [facility] 2024-03-15 00:00:00 2024-03-15 13:12:53 Refill Erick [facility]asc[facility] 1.840.114 350.1.13.10 4.2.7.2.686 [id number] [facility] 2024-03-13 15:00:00 2024-03-13 15:20:00 Urgent Care Clarissa Sylvester, Attending [facility] PHILLIP?[facility] 1.840.114 350.1.13.10 4.2.7.2.686 [id number] [facility] 2024-03-13 15:00:00 2024-03-13 15:00:00 Outpatient R CLARISSA SYLVESTER [facility] [id number] [facility] 2024-02-09 00:00:00 2024-03-10 14:20:32 [facility] 1.2.840.114 350.1.13.10 4.2.7.2.686 [id number] [facility] 2024-03-08 00:00:00 2024-03-08 10:14:04 Refill Elo [facility] PHILLIP?[facility] 1.2.840.114 350.1.13.10 4.2.7.2.686 [id number] [facility] 2024-03-03 00:00:00 2024-03-03 12:33:51 [facility] 1.2.840.114 350.1.13.10 4.2.7.2.686 [id number] [facility] 2024-03-02 00:00:00 2024-03-03 09:29:37 [facility] 1.2.840.114 350.1.13.10 4.2.7.2.686 [id number] [facility] 2024-02-26 00:00:00 2024-03-02 10:57:29 Telephone [facility] 1.2.840.114 350.1.13.10 4.2.7.2.686 [id number] [facility] 2024-02-23 15:30:00 2024-02-23 15:30:00 Outpatient R ERICK GASCA [facility] [id number] [facility] 2024-02-23 00:00:00 2024-02-23 13:59:42 Telephone Blanca Gascathia [facility] PHILLIP?[facility] 1..840.114 350.1.13.10 4.2.7.2.686 [id number] [facility] 2024-02-19 15:00:00 2024-02-19 15:00:00 Outpatient R ERICK GASCA [facility] [id number] [facility] 2024-01-06 00:00:00 2024-01-06 00:00:00 Telephone DuongJuany [facility] 1.840.114 350.1.13.10 4.2.7.2.686 [id number] [facility] 2024-01-04 16:00:00 2024-01-04 16:40:12 Outpatient R MELANIE HERNANDEZ [facility] [id number] [facility] 2024-01-04 16:00:00 2024-01-04 16:40:12 Urgent Care Melanie Hernandez Unknown, Attending [facility] 1..840.114 350.1.13.10 4.2.7.2.686 [id number] [facility] 2024-01-04 16:00:00 2024-01-04 16:00:00 Outpatient LOUIE DE JESUS [facility] [id number] [facility] 2023-12-31 00:00:00 2023-12-31 00:00:00 Telephone Blanca Gascathia [facility] 1..840.114 350.1.13.10 4.2.7.2.686 [id number] [facility] 2023-11-30 15:30:00 2023-11-30 15:30:00 Outpatient R ERICK GASCA [facility] [id number] [facility] 2023-11-18 00:00:00 2023-11-18 00:00:00 [facility] 1.2.840.114 350.1.13.10 4.2.7.2.686 [id number] [facility] 2023-11-11 16:00:00 2023-11-11 16:00:00 [facility] [id number] 2023-11-11 15:20:00 2023-11-11 15:20:00 [facility] [id number] [facility] 2023-11-11 00:00:00 2023-11-11 00:00:00 Telephone Erick Gasca [facility] 1.2.840.114 350.1.13.10 4.2.7.2.686 [id number] [facility] 2023-11-09 00:00:00 2023-11-09 00:00:00 [facility] 1.2.840.114 350.1.13.10 4.2.7.2.686 [id number] [facility] 2023-11-08 00:00:00 2023-11-08 00:00:00 Nurse Triage Kelly Soriano [facility] 1.2.840.114 350.1.13.10 4.2.7.2.686 [id number] [facility] 2023-11-08 00:00:00 2023-11-08 00:00:00 Nurse Triage Sue Santos [facility] 1.2.840.114 350.1.13.10 4.2.7.2.686 [id number] [facility] 2023-11-04 00:00:00 2023-11-04 00:00:00 [facility] 1.2.840.114 350.1.13.10 4.2.7.2.686 [id number] [facility] 2023-10-30 00:00:00 2023-10-30 00:00:00 [facility] 1.2.840.114 350.1.13.10 4.2.7.2.686 [id number] [facility] 2023-10-08 00:00:00 2023-10-08 00:00:00 [facility] 1.2.840.114 350.1.13.10 4.2.7.2.686 [id number] [facility] 2023-09-16 00:00:00 2023-09-16 00:00:00 [facility] 1.2.840.114 350.1.13.10 4.2.7.2.686 [id number] [facility] 2023-09-07 00:00:00 2023-09-07 00:00:00 [facility]ill [facility] OFF[facility]ILD[facility] 1.2.840.114 350.1.13.10 4.2.7.2.686 [id number] [facility] 2023-08-21 15:30:00 2023-08-21 15:30:00 Outpatient Conrado VÁSQUEZ, YOKO VÁSQUEZ, YOKO [facility] [id number] [facility] 2023-08-19 00:00:00 2023-08-19 00:00:00 [facility] 1.2.840.114 350.1.13.10 4.2.7.2.686 [id number] [facility] 2023-08-05 00:00:00 2023-08-05 00:00:00 Refill St[facility] 1.2.840.114 350.1.13.10 4.2.7.2.686 [id number] [facility] 2023-07-28 16:00:00 2023-07-28 16:55:33 Outpatient R ERICK GASCA [facility] [id number] [facility] 2023-07-28 16:00:00 2023-07-28 16:55:33 Office [facility] 1.2.840.114 350.1.13.10 4.2.7.2.686 [id number] [facility] 2023-05-28 14:30:00 2023-05-28 15:14:17 Outpatient R ERICK GASCA [facility] [id number] [facility] 2023-05-28 14:30:00 2023-05-28 15:14:17 Office Visit [facility] 1.2.840.114 350.1.13.10 4.2.7.2.686 [id number] [facility] 2023-05-25 15:00:00 2023-05-25 15:00:00 Outpatient R ERICK GASCA [facility] [id number] [facility] 2023-03-30 00:00:00 2023-03-30 00:00:00 Telephone Erick [facility]asc[facility] 1.84.114 350.1.13.10 4.2.7.2.686 [id number] [facility] 2023-02-17 00:00:00 2023-02-17 00:00:00 Refill Erick [facility]asc[facility] 1.84.114 350.1.13.10 4.2.7.2.686 [id number] [facility] 2023-01-21 00:00:00 2023-01-21 00:00:00 Pre Visit Outreach Veronica Jono Darnell [facility] 1..114 350.1.13.10 4.2.7.2.686 [id number] [facility] 2023-01-20 16:00:00 2023-01-20 16:46:28 Outpatient R ERICK GASCA [facility] [id number] [facility] 2023-01-20 16:00:00 2023-01-20 16:46:28 Office Visit Erick [facility]asca [facility] 1.84.114 350.1.13.10 4.2.7.2.686 [id number] [facility] 2023-01-20 00:00:00 2023-01-20 00:00:00 Orders Only Doctor Unassigned, [place] [facility] 1.114 350.1.13.10 4.2.7.2.686 [id number] [facility] 2023-01-12 00:00:00 2023-01-12 00:00:00 Refill St[facility] 1.2840.114 350.1.13.10 4.2.7.2.686 [id number] [facility] 2022-12-18 16:00:00 2022-12-18 16:00:00 Outpatient R ERICK GASCA [facility] [id number] [facility] 2022-12-02 00:00:00 2022-12-02 00:00:00 [facility] 1.0.114 350.1.13.10 4.2.7.2.686 [id number] [facility] 2022-11-28 00:00:00 2022-11-28 00:00:00 Refill Brad Means [facility] PHILLIP?[facility] BU[facility] 1.840.114 350.1.13.10 4.2.7.2.686 [id number] [facility] 2022-11-26 00:00:00 2022-11-26 00:00:00 Refill Brad Means [facility] PHILLIP?[facility] 1.2840.114 350.1.13.10 4.2.7.2.686 [id number] [facility] 2022-11-11 00:00:00 2022-11-11 00:00:00 Refill Erick Gasca [facility] PHILLIP?[facility] 1.2840.114 350.1.13.10 4.2.7.2.686 [id number] [facility] 2022-11-10 00:00:00 2022-11-10 00:00:00 Refill Caroline [facility]gal[facility] 1.840.114 350.1.13.10 4.2.7.2.686 [id number] [facility] 2022-10-24 15:20:00 2022-10-24 15:20:00 [facility] [id number] [facility] 2022-09-29 00:00:00 2022-09-29 00:00:00 [facility] 1.2.840.114 350.1.13.10 4.2.7.2.686 [id number] [facility] 2022-09-09 00:00:00 2022-09-09 00:00:00 Refill Aftab [facility] BUILDING 1.2.840.114 350.1.13.10 4.2.7.2.686 [id number] [facility] 2022-09-02 15:00:00 2022-09-02 15:00:00 Outpatient [facility] [id number] [facility] 2022-08-29 00:00:00 2022-08-29 00:00:00 Outpatient ALONDRA FLETCHER [id number] [facility] 2022-08-15 00:00:00 2022-08-15 00:00:00 Outpatient ALONDRA FLETCHER [id number] [facility] 2022-08-04 00:00:00 2022-08-04 00:00:00 Refill Louie Mosher [facility] 1.2.840.114 350.1.13.10 4.2.7.2.686 [id number] [facility] 2022-07-30 15:40:00 2022-07-30 15:40:00 Outpatient R [facility] [id number] [facility] 2022-07-29 00:00:00 2022-07-29 00:00:00 Telephone Louie Mosher [facility] BUILDING 1..840.114 350.1.13.10 4.2.7.2.686 [id number] [facility] 2022-07-15 00:00:00 2022-07-15 00:00:00 Refill Clary Rashminikhilful A [facility] PHILLIP?[facility] 1.840.114 350.1.13.10 4.2.7.2.686 [id number] [facility] 2022-07-13 21:24:00 2022-07-14 00:51:00 Emergency X SRUTHI MCKEON [facility] [id number] [facility] 2022-07-13 21:24:00 2022-07-14 00:51:[address] [facility] 1.840.114 350.1.13.10 4.2.7.2.686 [id number] [facility] 2022-07-08 00:00:00 2022-07-08 00:00:00 Refill Caroline Ugalde [facility] BUILDING 1..840.114 350.1.13.10 4.2.7.2.686 [id number] [facility] 2022-07-02 00:00:00 2022-07-02 00:00:00 Refill Clary Rashminikhilful A [facility] PHILLIP?[facility]ILD[facility] 1..840.114 350.1.13.10 4.2.7.2.686 [id number] [facility] 2022-06-28 00:00:00 2022-06-28 00:00:00 Refill Clary Rashminikhilful A [facility] PHILLIP?[facility] OFF[facility] BUILDING 1..840.114 350.1.13.10 4.2.7.2.686 [id number] [facility] 2022-06-27 11:30:00 2022-06-27 11:30:00 Outpatient R ERICK GASCA [facility] [id number] [facility] 2022-05-27 00:00:00 2022-05-27 00:00:00 Refill Brad Means [facility] PHILLIP?[facility] MEDICAL OFFICE BUILDING 1..840.114 350.1.13.10 4.2.7.2.686 [id number] [facility] 2022-05-12 00:00:00 2022-05-12 00:00:00 Refill Caroline Ugalde [facility] BUILDING 1..840.114 350.1.13.10 4.2.7.2.686 [id number] [facility] 2022-05-08 00:00:00 2022-05-08 00:00:00 Telephone Blanca Gascathia [facility] PHILLIP?[facility] MEDICAL OFFICE BUILDING 1..840.114 350.1.13.10 4.2.7.2.686 [id number] [facility] 2022-05-05 15:00:00 2022-05-05 15:00:00 Outpatient YOKO DE LA CRUZ [facility] [id number] [facility] 2022-05-03 00:00:00 2022-05-03 00:00:00 Refill Fahad Yoko [facility] BUILDING 1..840.114 350.1.13.10 4.2.7.2.686 [id number] [facility] 2022-04-28 15:30:00 2022-04-28 15:30:00 Outpatient BLANQUITA MONCADA [id number] [facility] 2022-04-22 15:15:00 2022-04-22 15:15:00 Outpatient BLANQUITA MONCADA CARMITA CARMITA [id number] [facility] 2022-04-15 00:00:00 2022-04-15 00:00:00 Telephone Yoko Vásquez [facility] BUILDING 1.840.114 350.1.13.10 4.2.7.2.686 [id number] [facility] 2022-04-11 00:00:00 2022-04-11 00:00:[facility] 1.840.114 350.1.13.10 4.2.7.2.686 [id number] [facility] 2022-04-07 15:30:00 2022-04-07 16:22:23 Outpatient R YOKO VÁSQUEZ [facility] [id number] [facility] 2022-04-07 15:30:00 2022-04-07 16:22:23 [facility] BUILDING 1.840.114 350.1.13.10 4.2.7.2.686 [id number] [facility] 2022-04-07 15:30:00 2022-04-07 16:22:23 [id number] 2022-04-07 00:00:00 2022-04-07 00:00:00 Orders Only Doctor Unassigned, [place] [facility] 1.840.114 350.1.13.10 4.2.7.2.686 [id number] [facility] 2022-03-26 00:00:00 2022-03-26 00:00:00 Telephone Louie Mosher [facility] PHILLIP?[facility] MEDICAL OFFICE BUILDING 1.840.114 350.1.13.10 4.2.7.2.686 [id number] [facility] 2022-03-21 16:00:00 2022-03-21 16:50:58 Outpatient R ERICK GASCA [facility] [id number] [facility] 2022-03-21 16:00:00 2022-03-21 16:50:58 [facility] BUILDING 1..840.114 350.1.13.10 4.2.7.2.686 [id number] [id number] [facility] 2022-03-03 16:30:00 2022-03-03 16:30:00 Outpatient R ERICK GASCA [facility] [id number] [facility] 2022-03-03 16:30:00 2022-03-03 16:30:00 Outpatient R ERICK GASCA [facility] [id number] [facility] 2021-12-19 15:00:00 2021-12-19 15:32:11 Outpatient R BRAD MEANS [facility] [id number] [facility] 2021-11-26 00:00:00 2021-11-26 00:00:00 Telephone Brad Means [facility] MEDICAL OFFICE BUILDING 1..840.114 350.1.13.10 4.2.7.2.686 [id number] [facility] 2021-10-15 00:00:00 2021-10-15 00:00:00 Orders Only Doctor Unassigned, [place] [facility] 1..840.114 350.1.13.10 4.2.7.2.686 [id number] [facility] 2021-09-27 16:00:00 2021-09-27 16:58:05 Outpatient R BRAD MAENS [facility] [id number] [facility] 2021-09-27 16:00:00 2021-09-27 16:58:05 Office Visit Brad Means [facility] MEDICAL OFFICE BUILDING 1.2.840.114 350.1.13.10 4.2.7.2.686 [id number] [id number] [facility] 2021-09-20 00:00:00 2021-09-20 00:00:00 Telephone Brad Means [facility] MEDICAL OFFICE BUILDING 1.2.840.114 350.1.13.10 4.2.7.2.686 [id number] [facility] 2021-09-18 00:00:00 2021-09-18 00:00:00 Telephone Brad Means [facility] OFFICE BUILDING 1.2.840.114 350.1.13.10 4.2.7.2.686 [id number] 044 [id number] [facility] 2021-09-11 00:00:00 2021-09-11 00:00:00 Telephone Brad Means [facility] MEDICAL OFFICE BUILDING 1.2.840.114 350.1.13.10 4.2.7.2.686 [id number] [id number] [facility] 2021-08-06 15:23:13 2021-08-06 15:59:17 Office Visit Caroline Ugalde [facility] nal Building 1.2.840.114 350.1.13.10 4.2.7.2.686 [id number] [facility] 2021-08-06 15:40:00 2021-08-06 15:40:00 Outpatient R CAROLINE UGALDE [facility] [id number] [facility] 2021-08-06 15:20:00 2021-08-06 15:20:00 Outpatient R RAKESH VELAZQUEZ [facility] [id number] [facility] 2021-08-06 15:18:46 2021-08-06 15:19:02 Imm/Inj Visit Nurse, Dread Zambrano Immunizatimichael VelazquezRakesh [facility] [place] 1.2.840.114 350.1.13.10 4.2.7.2.686 [id number] [facility] 2021-08-01 00:00:00 2021-08-01 00:00:00 Telephone Clary Rashminikhilhaydee [facility] Phillip?[facility] Medical Office Building 1.2.840.114 350.1.13.10 4.2.7.2.686 [id number] 044 [id number] [facility] 2021-07-25 15:38:20 2021-07-25 23:59:00 Hospital Encounter ClaryRashminu Darrel [facility] 1.2.840.114 350.1.13.10 4.2.7.2.686 [id number] [facility] 2021-07-25 00:00:00 2021-07-25 00:00:00 Outpatient R BRAD MEANS [facility] [id number] [facility] 2021-07-25 00:00:00 2021-07-25 00:00:00 Telephone Clary Rashminikhilhaydee Rojo [facility] Phillip?[facility] Medical Office Building 1.2.840.114 350.1.13.10 4.2.7.2.686 [id number] [id number] [facility] 2021-07-15 14:40:00 2021-07-15 14:40:00 Outpatient R CAROLINE UGALDE [facility] [id number] [facility] 2021-07-02 00:00:00 2021-07-02 00:00:00 Telephone Clary Rashminikhilhaydee Rojo [facility] Phillip?[facility] Office Building 1.0.114 350.1.13.10 4.2.7.2.686 [id number] 044 [id number] [facility] 2021-06-26 00:00:00 2021-06-26 00:00:00 Case Management Brad Means [facility] Fisher?[facility] Office Building 1.840.114 350.1.13.10 4.2.7.2.686 [id number] 044 [id number] [facility] 2021-06-21 16:25:04 2021-06-21 16:40:04 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, Simon Yanez Brad Means [facility] Phillip?[facility] Building 1.0.114 350.1.13.10 4.2.7.2.686 [id number] [facility] 2021-06-21 16:00:00 2021-06-21 16:00:00 Outpatient R BRAD MEANS [facility] [id number] [facility] 2021-06-21 00:00:00 2021-06-21 00:00:00 Orders Only Doctor Unassigned, [place] [facility] 1..114 350.1.13.10 4.2.7.2.686 [id number] [facility] 2021-06-18 00:00:00 2021-06-18 00:00:00 Telephone Brad Means [facility] Phillip?[facility] Office Building 1..114 350.1.13.10 4.2.7.2.686 [id number] 044 [id number] [facility] 2021-05-15 00:00:00 2021-05-15 00:00:00 Telephone Brad Means [facility] Office Building One 1..114 350.1.13.10 4.2.7.2.686 [id number] 044 [id number] [facility] 2021-05-13 00:00:00 2021-05-13 00:00:00 Orders Only Doctor Unassigned, [place] [facility] 1.2.840.114 350.1.13.10 4.2.7.2.686 [id number] [id number] [facility] 2021-04-28 00:00:00 2021-04-28 00:00:00 Refill Brad Means [facility] Building 1..840.114 350.1.13.10 4.2.7.2.686 [id number] 044 [id number] [facility] 2021-04-17 00:00:00 2021-04-17 00:00:00 Telephone Brad Means [facility] Office Building One 1.2840.114 350.1.13.10 4.2.7.2.686 [id number] 044 [id number] [facility] 2021-04-16 15:45:00 2021-04-16 15:45:00 Outpatient R BRAD MEANS [facility] [id number] [facility] 2021-04-16 15:45:00 2021-04-16 15:45:00 Outpatient R BRAD MEANS [facility] [id number] [facility] 2021-04-01 15:00:00 2021-04-01 15:00:00 Outpatient R BRAD MEANS [facility] [id number] [facility] 2021-03-09 22:51:00 2021-03-10 01:10:00 Emergency Reina [facility] 1.2.840.114 350.1.13.10 4.2.7.2.686 [id number] [facility] 2021-03-09 22:51:00 2021-03-10 01:10:00 Emergency X REINA [facility] [id number] [facility] 2021-03-01 00:00:00 2021-03-01 00:00:00 Telephone Brad Means [facility] Office Building One 1.0.114 350.1.13.10 4.2.7.2.686 [id number] 044 [id number] [facility] 2021-02-22 00:00:00 2021-02-22 00:00:00 Telephone Brad Means [facility] Office Building One 1..114 350.1.13.10 4.2.7.2.686 [id number] 044 [id number] [facility] 2021-02-22 00:00:00 2021-02-22 00:00:00 Orders Only Doctor Unassigned, [place] [facility] 1.0.114 350.1.13.10 4.2.7.2.686 [id number] [id number] [facility] 2021-02-19 00:00:00 2021-02-19 00:00:00 Telephone Brad Means [facility] Office Building One 1..114 350.1.13.10 4.2.7.2.686 [id number] 044 [id number] [facility] 2021-02-15 00:00:00 2021-02-15 00:00:00 Telephone Brad Means [facility] Office Building One 1.0.114 350.1.13.10 4.2.7.2.686 [id number] 044 [id number] [facility] 2021-01-17 00:00:00 2021-01-17 00:00:00 Telephone Brad Means [facility] Office Building One 1.0.114 350.1.13.10 4.2.7.2.686 [id number] 044 [id number] [facility] 2021-01-15 00:00:00 2021-01-15 00:00:00 Telephone Brad Means [facility] Office Building One 1.840.114 350.1.13.10 4.2.7.2.686 [id number] 044 [id number] [facility] 2021-01-14 00:00:00 2021-01-14 00:00:00 Telephone Brad Means [facility] Office Building One 1.840.114 350.1.13.10 4.2.7.2.686 [id number] 044 [id number] [facility] 2021-01-14 00:00:00 2021-01-14 00:00:00 Telephone Brad Means [facility] Office Building One 1..114 350.1.13.10 4.2.7.2.686 [id number] 044 [id number] [facility] 2021-01-10 00:00:00 2021-01-10 00:00:00 Telephone Brad Means [facility] Office Building One 1.0.114 350.1.13.10 4.2.7.2.686 [id number] 044 [id number] [facility] 2020-12-31 16:30:00 2020-12-31 16:30:00 Outpatient R BRAD MEANS [facility] [id number] [facility] 2020-12-28 15:16:00 2020-12-28 15:57:33 Office Visit Brad Means [facility] Office Building One 1.0.114 350.1.13.10 4.2.7.2.686 [id number] 044 [id number] [facility] 2020-12-28 15:00:00 2020-12-28 15:00:00 Outpatient R BRAD MEANS [facility] [id number] [facility] 2020-12-26 00:00:00 2020-12-26 00:00:00 Pre Visit Outreach Brad Means [facility] Office Building One 1.0.114 350.1.13.10 4.2.7.2.686 [id number] 044 [id number] [facility] 2020-12-21 00:00:00 2020-12-21 00:00:00 Telephone Brad Means [facility] Office Building One 1..114 350.1.13.10 4.2.7.2.686 [id number] 044 [id number] [facility] 2020-12-14 15:34:39 2020-12-14 15:54:39 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, Adc Fam Pob I Brad Means [facility] Office Building One 1..114 350.1.13.10 4.2.7.2.686 [id number] 044 [id number] [facility] 2020-12-14 14:38:55 2020-12-14 15:33:19 Office Visit Brad Means [facility] Office Building One 1.114 350.1.13.10 4.2.7.2.686 [id number] 044 [id number] [facility] 2020-12-14 15:00:00 2020-12-14 15:00:00 Outpatient R BRAD MEANS [facility] [id number] [facility] 2020-12-06 00:00:00 2020-12-06 00:00:00 Telephone Brad Means [facility] Office Building One 1..114 350.1.13.10 4.2.7.2.686 [id number] 044 [id number] [facility] 2020-11-23 00:00:00 2020-11-23 00:00:00 Telephone Brad Means [facility] Office Building One .114 350.1.13.10 4.2.7.2.686 [id number] 044 [id number] [facility] 2020-11-21 09:20:00 2020-11-21 09:15:57 Outpatient R OLIMPIA ROSAS [facility] [id number] [facility] 2020-10-31 09:40:00 2020-10-31 09:42:48 Outpatient R OLIMPIA ROSAS [facility] [id number] [facility] 2020-09-11 06:50:33 2020-09-11 17:06:54 Telemedici ne Visit LeotaBrad alvarado [facility] Office Building One .114 350.1.13.10 4.2.7.2.686 [id number] 044 [id number] [facility] 2020-09-11 16:00:00 2020-09-11 16:00:00 Outpatient R CLARYRASHMI ALVARADONIKHILHAYDEE [facility] [id number] [facility] 2020-08-30 16:30:00 2020-08-30 16:30:00 Outpatient R CLARYRASHMI ALVARADONIKHILHAYDEE [facility] [id number] [facility] 2020-08-30 07:30:20 2020-08-30 07:45:20 Telemedici ne Visit Brad Means [facility] Office Building One .114 350.1.13.10 4.2.7.2.686 [id number] 044 [id number] [facility] 2020-08-21 00:00:00 2020-08-21 00:00:00 Telephone Brad Means [facility] Office Building One .114 350.1.13.10 4.2.7.2.686 [id number] 044 [id number] [facility] 2020-08-20 00:00:00 2020-08-20 00:00:00 Refill Brad Means [facility] Building 1..114 350.1.13.10 4.2.7.2.686 [id number] 044 [id number] [facility] 2020-08-10 00:00:00 2020-08-10 00:00:00 Refill Brad Means [facility] Office Building One 1..114 350.1.13.10 4.2.7.2.686 [id number] 044 [id number] [facility] 2020-07-27 16:00:00 2020-07-27 16:00:00 Outpatient R BRAD MEANS [facility] [id number] [facility] 2020-07-27 07:54:40 2020-07-27 08:09:40 Telemedici ne Visit Brad Means [facility] Office Building One 1.84.114 350.1.13.10 4.2.7.2.686 [id number] 044 [id number] [facility] 2020-06-07 13:00:00 2020-06-07 13:00:00 Outpatient R CLARYRASHMI ALVARADONIKHILHAYDEE [facility] [id number] [facility] 2020-05-22 00:00:00 2020-05-22 00:00:00 Refill Brad Means [facility] Office Building One 1.84.114 350.1.13.10 4.2.7.2.686 [id number] 044 [id number] [facility] 2020-05-16 13:45:00 2020-05-16 13:45:00 Outpatient R CLARYBRAD ALVARADO [facility] [id number] [facility] 2020-05-09 07:50:30 2020-05-09 16:11:12 Telemedici ne Visit Brad Means [facility] Building 1.2.840.114 350.1.13.10 4.2.7.2.686 [id number] [id number] [facility] 2020-05-09 13:30:00 2020-05-09 13:30:00 Outpatient R BRAD MEANS [facility] [id number] [facility] 2020-05-07 00:00:00 2020-05-07 00:00:00 Telephone Brad Means [facility] Office Building One 1.2.840.114 350.1.13.10 4.2.7.2.686 [id number] 044 [id number] [facility] 2020-05-07 00:00:00 2020-05-07 00:00:00 Telephone Brad Means [facility] Office Building One 1.2.840.114 350.1.13.10 4.2.7.2.686 [id number] [id number] [facility] 2020-05-07 00:00:00 2020-05-07 00:00:00 Refill Caroline Ugalde [facility] Building 1.2.840.114 350.1.13.10 4.2.7.2.686 [id number] 059 [id number] [facility] 2020-05-03 00:00:00 2020-05-03 00:00:00 Telephone Brad Means [facility] Office Building One 1.2840.114 350.1.13.10 4.2.7.2.686 [id number] [id number] [facility] 2020-04-09 09:20:00 2020-04-09 09:20:00 Outpatient R CAROLINE UGALDE [facility] [id number] [facility] 2020-04-09 00:00:00 2020-04-09 00:00:00 Refill Brad Means [facility] Office Building One 1.2840.114 350.1.13.10 4.2.7.2.686 [id number] 044 [id number] [facility] 2020-04-09 00:00:00 2020-04-09 00:00:00 Telephone Brad Means [facility] Office Building One 1.2.840.114 350.1.13.10 4.2.7.2.686 [id number] 044 [id number] [facility] 2020-02-27 08:38:37 2020-02-27 16:06:54 Telemedici ne Visit Brad Means [facility] Building 1.2.840.114 350.1.13.10 4.2.7.2.686 [id number] [facility] 2020-02-27 15:45:00 2020-02-27 15:45:00 Outpatient R BRAD MEANS [facility] [id number] [facility] 2020-02-24 00:00:00 2020-02-24 00:00:00 Refill Brad Means [facility] Office Building One 1.2840.114 350.1.13.10 4.2.7.2.686 [id number] 044 [id number] [facility] 2020-02-23 00:00:00 2020-02-23 00:00:00 Telephone Brad Means [facility] Office Building One 1.2840.114 350.1.13.10 4.2.7.2.686 [id number] 044 [id number] [facility] 2020-01-04 15:20:00 2020-01-04 15:20:00 Outpatient R CAROLINE UGALDE [facility] [id number] [facility] 2020-01-04 08:15:09 2020-01-04 08:35:09 [facility]ici ne [facility] 1.2.840.114 350.1.13.10 4.2.7.2.686 [id number] [facility] 2019-12-19 00:00:00 2019-12-19 00:00:00 Orders Only Doctor Unassigned, [place] [facility] 1.2.840.114 350.1.13.10 4.2.7.2.686 [id number] [facility] 2019-11-09 15:04:41 2019-12-18 22:04:46 [facility] 1.2.840.114 350.1.13.10 4.2.7.2.686 [id number] 059 [id number] [facility] 2019-12-15 00:00:00 2019-12-15 00:00:00 [facility] 1.2.840.114 350.1.13.10 4.2.7.2.686 [id number] 059 [id number] [facility] 2019-12-09 00:00:00 2019-12-09 00:00:00 Telephone Brda Means [facility] Office Building One 1.2.840.114 350.1.13.10 4.2.7.2.686 [id number] 044 [id number] [facility] 2019-11-14 00:00:00 2019-11-14 00:00:00 [facility] 1.2.840.114 350.1.13.10 4.2.7.2.686 [id number] [facility] 2019-11-09 15:00:00 2019-11-09 15:00:00 [id number] 2019-11-03 00:00:00 2019-11-03 00:00:00 RefCaroline Calhoun [facility] Building 1.840.114 350.1.13.10 4.2.7.2.686 [id number] [facility] 2019-10-20 17:00:00 2019-10-20 17:00:00 Outpatient BRAD GRIFFIN [facility] [id number] [facility] 2019-09-19 18:24:58 2019-09-19 22:10:00 Emergency X Jeannie [facility] [id number] [facility] 2019-07-26 15:00:00 2019-07-26 15:51:56 Outpatient YENY PRESLEY [facility] [id number] [facility] 2019-06-20 00:00:00 2019-06-20 00:00:00 Orders Only Doctor Unassigned, [place] [facility] 1.840.114 350.1.13.10 4.2.7.2.686 [id number] [facility] 2019-06-17 00:00:00 2019-06-17 00:00:00 RefBrad Morgan [facility] Office Building One .840.114 350.1.13.10 4.2.7.2.686 [id number] 044 [id number] [facility] 2019-06-16 13:00:00 2019-06-16 13:01:52 Outpatient R BRAD MEANS [facility] [id number] [facility] 2019-06-16 12:49:11 2019-06-16 13:01:52 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, Adc [facility] Pob Brad Duarte [facility] Office Building One 1.840.114 350.1.13.10 4.2.7.2.686 [id number] 044 [id number] [facility] 2019-06-15 00:00:00 2019-06-15 00:00:00 Telephone Brad Means [facility] Office Building One 1.2.840.114 350.1.13.10 4.2.7.2.686 [id number] 044 [id number] [facility] 2019-06-07 00:00:00 2019-06-07 00:00:00 Telephone Brad Means [facility] Building 1.2.840.114 350.1.13.10 4.2.7.2.686 [id number] 044 [id number] [facility] 2019-06-07 00:00:00 2019-06-07 00:00:00 Telephone Brad Means [facility] Office Building One 1.2840.114 350.1.13.10 4.2.7.2.686 [id number] 044 [id number] [facility] 2019-06-04 00:00:00 2019-06-04 00:00:00 Telephone Brad Means [facility] Office Building One 1.2.840.114 350.1.13.10 4.2.7.2.686 [id number] 044 [id number] [facility] 2019-06-03 17:07:28 2019-06-03 20:48:00 Emergency Maurilio Brumfield [facility] 1.2.840.114 350.1.13.10 4.2.7.2.686 [id number] 084 [id number] [facility] 2019-06-03 15:42:12 2019-06-03 15:57:12 Office Visit Brad Means [facility] Office Building One 1.2840.114 350.1.13.10 4.2.7.2.686 [id number] 044 [id number] [facility] 2019-06-03 00:00:00 2019-06-03 00:00:00 Orders Only Doctor Unassigned, [place] [facility] 1.2840.114 350.1.13.10 4.2.7.2.686 [id number] [facility] 2019-05-30 00:00:00 2019-05-30 00:00:00 Telephone ClaryRashminu Darrel [facility] Office Building One 1.2840.114 350.1.13.10 4.2.7.2.686 [id number] 044 [id number] [facility] 2019-05-20 00:00:00 2019-05-20 00:00:00 Telephone ClaryRashmi alvaradonu Darrel [facility] Office Building One 1.840.114 350.1.13.10 4.2.7.2.686 [id number] 044 [id number] [facility] 2019-05-19 00:00:00 2019-05-19 00:00:00 Telephone ClaryRashmi alvaradonu Darrel [facility] Office Building One 1.840.114 350.1.13.10 4.2.7.2.686 [id number] 044 [id number] [facility] 2019-05-17 13:54:57 2019-05-17 14:04:57 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, Adc [facility] Pob I Brad Means Darrel [facility] Office Building One 1..114 350.1.13.10 4.2.7.2.686 [id number] 044 [id number] [facility] 2019-05-17 13:00:00 2019-05-17 14:03:08 Outpatient R BRAD MEANS [facility] [id number] [facility] 2019-04-26 13:59:36 2019-05-13 10:48:52 Office Visit Brad Means Darrel [facility] Office Building One 1.2.840.114 350.1.13.10 4.2.7.2.686 [id number] [id number] [facility] 2019-05-13 00:00:00 2019-05-13 00:00:00 Telephone Brad Means [facility] [id number] [id number] [id number] [facility] 2019-05-13 00:00:00 2019-05-13 00:00:00 Telephone Brad Means [facility] nal Office [facility] [id number] 350.1.13.10 [id number] [id number] [facility] 2019-05-12 00:00:00 2019-05-12 00:00:00 Telephone Brad Means [facility] [id number] 350.1.13.10 [id number] [id number] [facility] 2019-05-11 00:00:00 2019-05-11 00:00:00 Telephone Brad Means [facility] [id number] 350.1.13.10 4.2.7.2.686 [id number] [facility] 2019-05-10 00:00:00 2019-05-10 00:00:00 Telephone Brad Means [facility] [id number] 350.1.13.10 4.2.7.2.686 [id number] [id number] [facility] 2019-05-10 00:00:00 2019-05-10 00:00:00 Telephone Brad Means [facility] [id number] 350.1.13.10 4.2.7.2.686 [id number] [facility] Results Test Description Test Time Test Comments Results [facility] Specific [id number] 20:14:00* Test Item Value Reference Range Interpretation Comme nts POCT U SP GRAV (test code = 3255) 1.020 mg/dl 1.005-1.025 POCT PH U (test code = 3254) 5 mg/dl 5-8 POCT U LEUK EST (test code = 3263) negative Negative - Negative POCT U NIT (test code = 3262) negative Negative - Negati ve POCT U PROT (test code = 3259) negative Negative - Negative POCT U GLU (test code = 3256) negative Negative - Negati ve POCT U KETONE (test code = 3258) negative Negative - Negative POCT U UROBILI (test code = 3260) negative 0.2-1 POCT U BILI (test code = 3261) negative Negative - Negative POCT U BLD (test code = 3257) trace Negative - Negati ve POCT U COLOR (test code = 3266) yellow POCT U APPEAR (test code = 3267) cloudy Lab Interpretation (test cod e = 74454-8) [facility] Specific [id number] 21:24:00* Test Item Value Reference Range Interpretation Comme nts POCT U SP GRAV (test code = 3255) 1.010 mg/dl 1.005-1.025 POCT PH U (test code = 3254) 7 mg/dl 5-8 POCT U LEUK EST (test code = 3263) neg Negative - Negative POCT U NIT (test code = 3262) neg Negative - Negati ve POCT U PROT (test code = 3259) neg Negative - Negative POCT U GLU (test code = 3256) neg Negative - Negati ve POCT U KETONE (test code = 3258) neg Negative - Negative POCT U UROBILI (test code = 3260) neg 0.2-1 POCT U BILI (test code = 3261) neg Negative - Negative POCT U BLD (test code = 3257) neg Negative - Negati ve POCT U COLOR (test code = 3266) yellow POCT U APPEAR (test code = 3267) clear Lab Interpretation (test cod e = 56566-4) [facility] Specific [id number] 21:24:00* Test Item Value Reference Range Interpretation Comme nts POCT U SP GRAV (test code = 3255) 1.010 mg/dl 1.005-1.025 POCT PH U (test code = 3254) 7 mg/dl 5-8 POCT U LEUK EST (test code = 3263) neg Negative - Negative POCT U NIT (test code = 3262) neg Negative - Negati ve POCT U PROT (test code = 3259) neg Negative - Negative POCT U GLU (test code = 3256) neg Negative - Negati ve POCT U KETONE (test code = 3258) neg Negative - Negative POCT U UROBILI (test code = 3260) neg 0.2-1 POCT U BILI (test code = 3261) neg Negative - Negative POCT U BLD (test code = 3257) neg Negative - Negati ve POCT U COLOR (test code = 3266) yellow POCT U APPEAR (test code = 3267) clear Lab Interpretation (test cod e = 72306-8) [facility] (22850)2022-07-14 04:02:31* Test Item Value Reference Range Interpretation Comme nts NA (test code = 6939737391) 139 mmol/L 135-145 K (test code = 5079693892) 4.5 mmol/L 3.5-5 CL (test code = 6638240518) 99 mmol/L 98-108 CO2 TOTAL (test code = 8144224921) 28 mmol/L 23-31 AGAP (test code = 8218822394) 2-16 BUN (test code = 3837960360) 15 mg/dL 7-23 GLUCOSE (test code = 2119430269) 108 mg/dL 70-110 CREATININE (test code = 9768967629) 1.01 mg/dL 0.5-1.04 TOTAL BILI (test code = 0844543360) 0.5 mg/dL 0.1-1.1 CALCIUM (test code = 6651857097) 9.9 mg/dL 8.6-10.6 T PROTEIN (test code = 3837985437) 7.3 g/dL 6.3-8.2 ALBUMIN (test code = 0530406337) 4.8 g/dL 3.5-5 ALK PHOS (test code = 2274335255) 46 U/L 34-122 ALTv (test code = 1742-6) 36 U/L 5-35 H AST(SGOT) (test code = 2286773796) 36 U/L 13-40 eGFR (test code = 5655238422) mL/min/1.73m2 CINDY (test code = CINDY) Association of Glomerular Filtration Rate (GFR) and Staging of Kidney Disease* + --+ --+ ------+| GFR (mL/min/1.73 m2) ?| With Kidney Damage ?| ?Without Kidney Damage+ --------+ --------+ +| ?>90 ?| ?Stage one ?| ? Normal ?+ ---+ ---+ -------+| ?60-89 ?| ?Stage two ?| ? Decreased GFR ? + --+ --+ ------+| ?30-59 ?| ?Stage three ?| ? Stage three ? + --+ --+ ------+| ?15-29 ?| ?Stage four ? | ? Stage four ?+ ---+ ---+ -------+| ?<15 (or dialysis) ? ?| ?Stage five ? | ? Stage five ?+ ---+ ---+ -------+ *Each stage assumes the associated GFR level has been in effect for at least three months. ?Stages 1 to 5, with or without kidney disease, indicate chronic kidney disease. Notes: Determination of stages one and two (with eGFR >59mL/min/1.73 m2) requires estimation of kidney damage for at least three months as defined by structural or functional abnormalities of the kidney, manifested by either:Pathological abnormalities or Markers of kidney damage (including abnormalities in the composition of the blood or urine or abnormalities in imaging tests). Lab Interpretation (test code = 73773-3) Abnormal [facility] WITH [id number] 03:48:53* Test Item Value Reference Range Interpretation Comme nts WBC (test code = 6690-2) See_Comment [Automated reQalla ge] The system which generated this result transmitted reference range: 4.30 - 11.10 10*3/?L. The reference range was not used to interpret this result as normal/abnormal. RBC (test code = 789-8) See_Comment [Automated reQalla ge] The system which generated this result transmitted reference range: 3.93 - 5.25 10*6/?L. The reference range was not used to interpret this result as normal/abnormal. HGB (test code = 718-7) 14.0 g/dL 11.6-15 HCT (test code = 4544-3) 42.3 % 35.7-45.2 MCV (test code = 787-2) 96.6 fL 80.6-95.5 H MCH (test code = 785-6) 32.0 pg 25.9-32.8 MCHC (test code = 786-4) 33.1 g/dL 31.6-35.1 RDW-SD (test code = 09958-9) 46.4 fL 39-49.9 RDW-CV (test code = 788-0) 13.0 % 12-15.5 PLT (test code = 777-3) See_Comment H [Automated reQalla ge] The system which generated this result transmitted reference range: 166 - 358 10*3/?L. The reference range was not used to interpret this result as normal/abnormal. MPV (test code = 66007-9) 9.5 fL 9.5-12.9 NRBC/100 WBC (test code = 9504498852) See_Comment [Automated Lookwider ssage] The system which generated this result transmitted reference range: 0.0 - 10.0 /100 WBCs. The reference range was not used to interpret this result as normal/abnormal. NRBC x10^3 (test code = 6587949886) See_Comment [Automated reQalla ge] The system which generated this result transmitted reference range: 10*3/?L. The reference range was not used to interpret this result as normal/abnormal. GRAN MAT (NEUT) % (test code = 770-8) 41.4 % IMM GRAN % (test code = 4584546327) 0.50 % LYMPH % (test code = 736-9) 36.6 % MONO % (test code = 5905-5) 8.8 % EOS % (test code = 713-8) 11.5 % BASO % (test code = 706-2) 1.2 % GRAN MAT x10^3(ANC) (test code = 6646341437) 4.50 10*3/uL 1.88-7.09 IMM GRAN x10^3 (test code = 9657799728) 0.05 10*3/uL 0-0.06 LYMPH x10^3 (test code = 731-0) 3.98 10*3/uL 1.32-3.29 H MONO x10^3 (test code = 742-7) 0.96 10*3/uL 0.33-0.92 H EOS x10^3 (test code = 711-2) 1.25 10*3/uL 0.03-0.39 H BASO x10^3 (test code = 704-7) 0.13 10*3/uL 0.01-0.07 H Lab Interpretation (test code = 86974-4) Abnormal [facility] Notes Date/Time Note Provider Source 2024-05-16 17:26:15 EDWIN Sal has approved ONLY 7 tablets metoprolol succ ER 50 mg for patient. She will need to be seen for any further refills, patient has been called, has been called and notified, pharmacy has been called and notified . Attempted to contact patient, left message on voicemail to return call. [facility] 2024-05-13 13:31:40 Attempted to contact patient, unable to leave voicemail, due it not being set up. Called spouse and he said he would have her call back. Called pharmacy, and left message reporting unable to reach patient by phone to schedule appointment. T [facility] [employer] 2024-05-11 17:43:37 Images from the original note were not included. Contact patient for appointment for refill. T [facility] 2024-04-21 07:01:32 Images from the original note were not included. Unable to reach pt or leave vm. Unable to close encounter until meds are completed An Winchester [facility] 2024-04-12 13:06:54 Please facilitate office visit [facility] 2024-04-12 10:18:36 Images from the original note were not included. Notes: 02/15/24 Last Refilled: [facility] [id number] - SANDRA LEAHY [address] Recent Visits Date Type Provider Dept 07/28/23 Office Visit Erick Gasca FNP [facility] 05/28/23 Office Visit Erick Gasca FNP [facility] 01/20/23 Office Visit Erick Gasca FNP [facility] Showing recent visits within past 540 days with a meds authorizing provider and meeting all other requirements Future Appointments No visits were found meeting these conditions. Showing future appointments within next 150 days with a meds authorizing provider and meeting all other requirements metoprolol succinate XL 50 mg 24 hr tablet Sig: Take 1 tablet by mouth in the morning. MUST BE SEEN FOR FURTHER REFILLS Disp: 30 tablet Refills: 1 Start: 04/12/2024 Class: eRX For: Essential hypertension Last ordered: 1 month ago (02/15/2024) by EDWIN Sal Cardiovascular: Beta Blockers Didjwu4904/12/2024 10:10 AM Protocol Details Valid encounter within last 12 months Heart rate within normal limits and completed in the last 12 months To be filled at: [facility] [id number] [address] Bessie Maxwell MA [facility] 2024-04-12 10:18:05 Images from the original note were not included. Notes: MUST BE SEEN FOR FURTHER REFILLS Last Refilled: metoprolol succinate XL 50 mg 24 hr tablet Sig: Take 1 tablet by mouth in the morning. MUST BE SEEN FOR FURTHER REFILLS Disp: 30 tablet Refills: 1 Start: 04/12/2024 Class: eRX For: Essential hypertension Last ordered: 1 month ago (02/15/2024) by EDWIN Sal Cardiovascular: Beta Blockers Xlcktr7504/12/2024 10:10 AM Protocol Details Valid encounter within last 12 months Heart rate within normal limits and completed in the last 12 months To be filled at: [facility] [id number] [place] [address] Recent Visits Date Type Provider Dept 07/28/23 Office Visit Erick Gasca FNP [facility] 05/28/23 Office Visit Erick Gasca FNP [facility] 01/20/23 Office Visit Erick Gasca FNP [facility] Showing recent visits within past 540 days with a meds authorizing provider and meeting all other requirements Future Appointments No visits were found meeting these conditions. Showing future appointments within next 150 days with a meds authorizing provider and meeting all other requirements [facility] 2024-03-15 12:34:23 Notes: please Review Last Refilled: Disp Refills Start End AYAKA Fenofibrate 160 mg tablet 7 tablet 0 02/29/2024 -- No Sig: Take 1 tablet by mouth in the morning. Sent to pharmacy as: fenofibrate 160 mg tablet (LOFIBRA) Class: eRX Route: Oral Order: [id number] Date/Time Signed: 02/29/2024 14:19 E-Prescribing Status: Receipt confirmed by pharmacy (02/29/2024 2:20 PM CDT) Recent Visits Date Type Provider Dept 07/28/23 Office Visit Erick Gasca FNP [facility] 05/28/23 Office Visit Erick Gasca FNP [facility] 01/20/23 Office Visit Erick Gasca FNP [facility] Showing recent visits within past 540 days with a meds authorizing provider and meeting all other requirements Future Appointments No visits were found meeting these conditions. Showing future appointments within next 150 days with a meds authorizing provider and meeting all other requirements Roopa Miller [facility] 2024-03-15 11:29:29 Fenofibrate 160 mg tablet T [facility] 2024-03-04 09:04:49 Addended by: EDWIN GASCA DNP-ERICK JOHNSON on: 03/04/2024 09:04 AM Modules accepted: Orders [facility] 2024-03-04 09:02:55 I sent 15 day refill on requested thyroid medication- let patient know, I need ordered labs done before I can continue to treat safely. [facility] 2024-03-03 12:32:25 Last Refilled: levothyroxine 50 mcg tablet 90 tablet 3 01/20/2023 -- -- Sig: TAKE ONE TABLET BY MOUTH EVERY MORNING. DISCONTINUE 88MCG Sent to pharmacy as: levothyroxine 50 mcg tablet (SYNTHROID) Class: eRX Order: [id number] Date/Time Signed: 01/20/2023 16:22 E-Prescribing Status: Receipt confirmed by pharmacy (01/20/2023 4:22 PM CDT Recent Visits Date Type Provider Dept 07/28/23 Office Visit Erick Gasca FNP [facility] 05/28/23 Office Visit Erick Gasca FNP [facility] 01/20/23 Office Visit Erick Gasca FNP [facility] Showing recent visits within past 540 days with a meds authorizing provider and meeting all other requirements Future Appointments No visits were found meeting these conditions. Showing future appointments within next 150 days with a meds authorizing provider and meeting all other requirements Roopa Miller [facility] 2024-03-02 11:57:40 Copied from [facility] #[id number]. Topic: Clinical - Schedule Appointment >> March 02, 2024 11:55 AM Patient Pharmacy Retail Support Specialist wrote: Madeline Gracia is a 78 year old female Patient calling and states she is too sick to come in for a face to face appt with FELA Gasca. Please advise and let patient know if she can be seen via telehealth or what she needs to do. [phone] (home) Jennifer Carranza [facility] 2024-03-02 10:55:56 Left voicemail to schedule an appointment. When pt return call please assist in scheduling appointment. Slim Michel [facility] 2024-02-29 19:16:34 Face to face is treasure appropriate, needs labs. [facility] 2024-02-29 09:28:40 Please let PSS know if this is approved by provider and we will call pt to schedule. [facility] 2024-02-26 16:06:52 Madeline Gracia is a 78 year old female patient requesting a telehealth visit. States she is struggling with her health and is having a hard time making it to the appointments. Please advise. Gallo Marie [facility] 2024-02-23 13:59:03 Please Review Roopa Miller [facility] 2024-02-23 12:22:52 Copied from [facility] #[id number]. Topic: Clinical - Medical Advice >> February 23, 2024 12:21 PM Patient Pharmacy Retail Support Specialist wrote: Pt calling to let dr know the still aren't feeling well enough to come in and will reschedule when she feels better Filippo Guzman [facility] 2024-02-09 10:47:10 Images from the original note were not included. LAB REQUIREMENTS NOT MET Requested Renewals triamterene-hydrochlorothiaz amrita 37.5-25 mg per capsule Sig: TAKE ONE CAPSULE BY MOUTH EVERY MORNING Disp: 90 capsule Refills: 0 Start: 02/09/2024 Class: eRX For: Essential hypertension Last ordered: 3 months ago (11/09/2023) by EDWIN Sal Cardiovascular: Diuretic Combo Odcgfs4402/09/2024 10:10 AM Protocol Details K in normal range and within 180 days Na in normal range and within 180 days Cr in normal range and within 180 days Valid encounter within last 12 months Fenofibrate 160 mg tablet Sig: Take 1 tablet by mouth in the morning. Disp: 90 tablet Refills: 1 Start: 02/09/2024 Class: eRX For: Mixed dyslipidemia Last ordered: 6 months ago (08/06/2023) by EDWIN Sal Antilipid: Fibric Acid Derivatives Ttsxqt0602/09/2024 10:10 AM Protocol Details AST in normal range and within 360 days ALT in normal range and within 360 days HDL within 360 days LDL within 360 days Total Cholesterol within 360 days Triglycerides within 360 days Recent Visits Date Type Provider Dept 07/28/23 Office Visit Erick Gasca FNP [facility] 05/28/23 Office Visit Erick Gasca FNP [facility] 01/20/23 Office Visit Erick Gasca FNP [facility] Showing recent visits within past 540 days with a meds authorizing provider and meeting all other requirements Future Appointments Date Type Provider Dept 02/19/24 Appointment Erick Gasca FNP [facility] 02/23/24 Appointment Erick Gasca FNP [facility] Showing future appointments within next 150 days with a meds authorizing provider and meeting all other requirements [facility] 2024-01-06 17:42:29 Spoke with pt to convey that Urine Culture from 01/04/24 is contaminated. Instructed pt to follow up with Urgent Care, PCP or ER if symptoms persist or worsen. Pt verbalized understanding. Juany Duong RN 01/06/2024 6:21 PM Juany Duong RN [facility] 2024-01-01 08:25:20 Contacted patient and left detailed, private voicemail that she should utilize Urgent Care for possible bladder infection as provider is out of office. Kenya Estrada LVN 01/01/2024 8:26 AM [facility] 2023-12-31 17:37:17 Madeline Gracia is a 78 year old female Pt requesting a sooner appt within the next 2 weeks. May is too far off to be seen. She has a bladder infection and needs meds. Can not hold her urine and would like a call back from the nurse. Request an afternoon appt please. After 2pm. [phone] (home) Valeria Magaña [facility] 2023-11-18 10:05:42 Images from the original note were not included. Notes: 08/20/23 Last Refilled: [facility] [id number] [address] Recent Visits Date Type Provider Dept 07/28/23 Office Visit Erick Gasca FNP [facility] 05/28/23 Office Visit Erick Gasca FNP [facility] 01/20/23 Office Visit Erick Gasca FNP [facility] Showing recent visits within past 540 days with a meds authorizing provider and meeting all other requirements Future Appointments Date Type Provider Dept 11/30/23 Appointment Erick Gasca FNP [facility] Showing future appointments within next 150 days with a meds authorizing provider and meeting all other requirements metoprolol succinate XL 50 mg 24 hr tablet Sig: Take 1 tablet by mouth in the morning. MUST BE SEEN FOR FURTHER REFILLS Disp: 90 tablet Refills: 0 Start: 11/18/2023 Class: eRX For: Essential hypertension Last ordered: 3 months ago (08/20/2023) by EDWIN Sal Cardiovascular: Beta Blockers Xqavdq2111/18/2023 09:19 AM Protocol Details Valid encounter within last 12 months Heart rate within normal limits and completed in the last 12 months [facility] at[facility] [id number] Dr. Maxwell MA [facility] 2023-11-11 14:53:08 Patient called cardiology to discuss medications. Stated that she does not need cardiology at this time as Dr Gasca is taking care of her medication Refills. Stated that she is no longer taking xanax because it made her dizzy. She will contact Cardio if / when needed R POLLUTION CONTROL INSPECTOR Socorro Mercado RN [facility] 2023-11-09 10:26:32 Images from the original note were not included. Requested Renewals triamterene-hydrochlorothiaz amrita 37.5-25 mg per capsule Possible duplicate: Hover to review recent actions on this medication Sig: TAKE ONE CAPSULE BY MOUTH EVERY MORNING Disp: 90 capsule Refills: 1 Start: 11/04/2023 Class: eRX For: Essential hypertension Last ordered: 9 months ago (01/20/2023) by EDWIN Sal Cardiovascular: Diuretic Combo Yucfsp0811/08/2023 06:34 PM Protocol Details Valid encounter within last 12 months K in normal range and within 180 days Na in normal range and within 180 days Cr in normal range and within 180 days To be filled at: [facility] [id number] [address] Thursday11/11/23 appointment made for 4pm LVM to patient regarding assessment call on 11/08/23 2nd call to , stated that she needs an appointment to see Dr Ugalde ( OOT asked if Thursday appointment available) will have patient call back to confirm Regarding: patient feels drunk after taking medication. has no balance ----- Message from Rizwana Mensah sent at 11/08/2023 6:49 PM WATER POLLUTION CONTROL INSPECTOR ----- Madeline Gracia is a 78 year old female " patient states feels drunker than a skunk for the past week and has only taken her medications. She is staggering horribly. No balance of any kind. Wants to know what she can do. Started taking Xanax a week ago Specific Duration: one week Recent Visits Date Type Provider Dept 07/28/23 Office Visit Erick Gasca FNP [facility] 05/28/23 Office Visit Erick Gasca FNP [facility] 01/20/23 Office Visit Erick Gasca FNP [facility] Showing recent visits within past 540 days with a meds authorizing provider and meeting all other requirements Future Appointments Date Type Provider Dept 11/11/23 Appointment Caroline Ugalde MD [facility] 11/30/23 Appointment Erick Gasca FNP [facility] Showing future appointments within next 150 days with a meds authorizing provider and meeting all other requirements [facility] 2023-11-09 09:12:02 [facility] Lvm advising patient to contact prescriber of xanax janis. Appears Xanax prescribed by an outside provider. Patient is scheduled to see Dr. Ugalde on 11/11/23, not recent office visit since 2020. [facility] Rosy Maravilla RN [facility] 2023-11-09 08:37:46 Who gave her xanax? Find out and route. [facility] 2023-11-09 08:34:07 Thursday11/11/23 appointment made for 4pm LVM to patient regarding assessment call on 11/08/23 2nd call to , stated that she needs an appointment to see Dr Ugalde ( OOT asked if Thursday appointment available) will have patient call back to confirm Regarding: patient feels drunk after taking medication. has no balance ----- Message from Rizwana Mensah sent at 11/08/2023 6:49 PM WATER POLLUTION CONTROL INSPECTOR ----- Madeline Gracia is a 78 year old female " patient states feels drunker than a skunk for the past week and has only taken her medications. She is staggering horribly. No balance of any kind. Wants to know what she can do. Started taking Xanax a week ago Specific Duration: one week Mercado RN [facility] 2023-11-09 08:25:32 LVM to patient regarding assessment call 11/08/23 Regarding: patient feels drunk after taking medication. has no balance ----- Message from January Makenna sent at 11/08/2023 6:49 PM WATER POLLUTION CONTROL INSPECTOR ----- Madeline Gracia is a 78 year old female or post op (no) no -Number of weeks no -Date of Surgery no Language: jordanian Specific Symptoms: " patient states feels drunker than a skunk for the past week and has only taken her medications. She is staggering horribly. No balance of any kind. Wants to know what she can do. Started taking Xanax a week ago Specific Duration: one week Mercado RN [facility] 2023-11-08 18:51:00 Regarding: patient feels drunk after taking medication. has no balance ----- Message from January Makenna sent at 11/08/2023 6:49 PM WATER POLLUTION CONTROL INSPECTOR ----- Madeline Gracia is a 78 year old female or post op (no) no -Number of weeks no -Date of Surgery no Language: jordanian Specific Symptoms: " patient states feels drunker than a skunk for the past week and has only taken her medications. She is staggering horribly. No balance of any kind. Wants to know what she can do. Started taking Xanax a week ago Specific Duration: one week Santos RN [facility] 2023-11-08 18:51:00 Reason for Disposition Message left on unidentified voice mail. Phone number verified. Protocols used: No Contact or Duplicate Contact [id number] [facility] 2023-11-08 18:32:21 Madeline Gracia is a 78 year old female {Pt following up on refill request, making sure her pharmacy requested refill. She is completely out of med now. R POLLUTION CONTROL INSPECTOR Chanda Machado [facility] 2023-11-08 18:32:00 Regarding: Currently feeling unbalanced, causing pt to fall multiple times, x 3-4 days ----- Message from Chanda Machado sent at 11/08/2023 6:31 PM WATER POLLUTION CONTROL INSPECTOR ----- Madeline Gracia is a 78 year old female [facility] Kelly Soriano RN [facility] 2023-11-08 18:32:00 Reason for Disposition Message left on identified voice mail Protocols used: No Contact or Duplicate Contact [id number] Called [phone] 2 times. Left message if she still needs to speak to a nurse please call back to [phone]. Kelly DUNN, RN, [facility] Nurse Clinician IV Access Service Nurse Triage [facility] 2023-10-08 11:43:56 Last Refilled: Disp Refills Start End AYAKA obxjislsxlh-rgtmnvwaz-ykdiqj er (TRELEGY ELLIPTA) 100-62.5-25 mcg DsDv 1 Each 03/21/2022 -- -- Sig: Inhale 1 Puff daily. Rinse mouth after each use. Sent to pharmacy as: Trelegy Ellipta 100 mcg-62.5 mcg-25 mcg powder for inhalation (vdhjpadwpng-oerckcdhy-vilsf ter) Class: eRX Route: Inhalation Order: [id number] Date/Time Signed: 03/21/2022 16:37 E-Prescribing Status: Receipt confirmed by pharmacy (03/21/2022 4:37 PM CDT) Notes: Recent Visits Date Type Provider Dept 07/28/23 Office Visit Erick Gasca FNP [facility] 05/28/23 Office Visit Erick Gasca FNP [facility] 01/20/23 Office Visit Erick Gasca FNP [facility] Showing recent visits within past 540 days with a meds authorizing provider and meeting all other requirements Future Appointments Date Type Provider Dept 11/30/23 Appointment Erick Gasca FNP [facility] Showing future appointments within next 150 days with a meds authorizing provider and meeting all other requirements Fraire RN [facility]
[2024-05-22] MEDS ORDERED: NA CHLORIDE 0.9% 1,000 ML ONE (02:18)
[2024-05-22 02:36] LABS: Hemoglobin 12.7 g/dL (12.0-15.0)
[2024-05-22 02:39] LABS: Absolute Basophils 0.1 K/uL (0-0.5); Absolute Eosinophils 0.8 K/uL (0-0.5); Absolute Lymphocytes (CBC) 3.1 K/uL (0.7-4.9); Absolute Monocytes 0.7 K/uL (0.1-1.3); Absolute Neutrophil 5.5 K/uL (1.8-8.0); Basophils % 1.1 % (0-1.3); Eosinophils % 8.2 % (0-4.4); Hematocrit 37.7 % (36.0-45.0); Lymphocytes % 30.1 % (15.3-44.8); MCH 32.9 pg (27.0-35.0); MCHC 33.7 g/dL (32.0-36.0); MCV 97.6 fL (80-100); MPV 8.5 fL (7.6-11.3); Monocytes % 6.6 % (3.3-12.3); Nucleated Red Blood Cells % 0.1 % (0-0); Platelets 330 thou/uL (152-406); RBC Red Blood Cell Count 3.86 M/uL (3.86-4.86); Red Cell Distribution Width 14.6 % (12.1-15.2)
[2024-05-22 03:04] LABS: Albumin 3.5 g/dL (3.4-5.0); Albumin/Globulin Ratio 1.1 (1.1-1.8); Anion Gap 10.3 mEq/L (5.0-15.0); Bilirubin Total 0.2 mg/dL (0.2-1.0); Globulin 3.3 g/dL (2.3-3.5); Potassium 3.3 mEq/L (3.5-5.1); Protein, Total 6.8 g/dL (6.4-8.2)
[2024-05-22 03:51] LABS: Specific Gravity < 1.005 (1.005-1.030); Sqamous Epithelial None Seen /HPF (None Seen); Urine Bacteria <20 /HPF (<20); Urine Bilirubin NEGATIVE (Negative); Urine Blood Negative (Negative); Urine Clarity Clear (Clear); Urine Color Colorless (Yellow); Urine Culture Reflex Order NOT NEEDED; Urine Glucose NEGATIVE (Negative); Urine Ketones NEGATIVE (Negative); Urine Microscopic Reflex YN ORDER UMIC; Urine Nitrite NEGATIVE (Negative); Urine Protein NEGATIVE (Negative); Urine RBC <5 /HPF (None Seen); Urine Urobilinogen Normal (Normal); Urine WBC <5 /HPF (<5)
--- NOTE | 2024-05-22 04:39 | ER ---
Nurse's Notes [facility] Name: Madeline Gracia Age: 78 yrs Sex: Female : 1945 Arrival Date: 05/22/2024 Time: 01:28 Bed 5 Private MD: Diagnosis: Frequency of micturition;Insomnia, unspecified Presentation: 05/22 01:37 Chief complaint: EMS states: called out for pt that fell and was on floor and couldn't bm8 get up. On arrival pt was up and walked to the stretcher unassisted. pt is a little confused but denies pain or injury. Coronavirus screen: At this time, the client does not indicate any symptoms associated with coronavirus-19. Ebola Screen: Patient negative for fever greater than or equal to 101.5 degrees Fahrenheit, and additional compatible Ebola Virus Disease symptoms Patient denies exposure to infectious person. Patient denies travel to an Ebola-affected area in the 21 days before illness onset. No symptoms or risks identified at this time. Initial Sepsis Screen: Does the patient meet any 2 criteria? No. Patient's initial sepsis screen is negative. Does the patient have a suspected source of infection? No. Patient's initial sepsis screen is negative. Risk Assessment: Do you want to hurt yourself or someone else? Patient reports no desire to harm self or others. Onset of symptoms is unknown. 01:37 Method Of Arrival: EMS: [facility] bm8 01:37 Acuity: PEDRO 3 bm8 Triage Assessment: 01:45 General: Appears in no apparent distress. comfortable, Behavior is calm, cooperative, bm8 appropriate for age. Pain: Denies pain. EENT: No deficits noted. No signs and/or symptoms were reported regarding the EENT system. Neuro: Level of Consciousness is awake, alert, obeys commands, Oriented to person, place, situation, asked pt what month it was. pt answered correctly. asked pt who president was, and again she answered correctly. asked pt what year it was and she answered incorrectly.. Breast Trimmer are equal bilaterally Moves all extremities. Full function Gait is steady, Speech is normal, Facial symmetry appears normal. Cardiovascular: Denies chest pain, lightheadedness, shortness of breath, Capillary refill < 3 seconds Patient's skin is warm and dry. Respiratory: Airway is patent Trachea midline Respiratory effort is even, unlabored, Respiratory pattern is regular, symmetrical, Breath sounds are clear bilaterally. GI: No signs and/or symptoms were reported involving the gastrointestinal system. : No signs and/or symptoms were reported regarding the genitourinary system. Derm: No signs and/or symptoms reported regarding the dermatologic system. Musculoskeletal: No signs and/or symptoms reported regarding the musculoskeletal system. Historical: - Allergies: 01:45 Codeine; bm8 - Home Meds: 01:45 ezetimibe 10 mg oral tablet 1 tab daily [Active]; alprazolam 0.5 mg oral tablet 0.5 bm8 tabs 2 times per day [Active]; fluoxetine 20 mg Oral capsule 1 cap daily [Active]; albuterol sulfate 90 mcg/actuation Inhl HFA Aerosol Inhaler 1 inhalation prn [Active]; potassium chloride 99mg Oral Packet [Active]; - PMHx: 01:45 Hypercholesterolemia; Hypertensive disorder; bm8 - PSHx: 01:45 section; Tonsillectomy; Total abdominal hysterectomy; bm8 - Immunization history:: Adult Immunizations unknown. - Infectious Disease History:: Denies. - Social history:: Smoking status: unknown. Screenin:24 [facility] ED Fall Risk Assessment (Adult) History of falling in the last 3 months, bm8 including since admission No falls in past 3 months (0 pts) Confusion or Disorientation Yes (5 pts) Intoxicated or Sedated No (0 pts) Impaired Gait Yes (1 pt) Mobility Assist Device Used No (0 pt) Altered Elimination No (0 pt) Score/Fall Risk Level 3 or more points = High Risk Oriented to surroundings, Maintained a safe environment, Educated pt \T\ family on fall prevention, incl call for assistance when getting out of bed, Assessed \T\ reinforced patient's understanding of fall precautions, Hourly rounding (assess needs \T\ fall precautionary measures) done, Used ambulatory aids as needed (educated on \T\ assisted with), Used gait belt as appropriate. Abuse screen: Denies threats or abuse. Nutritional screening: No deficits noted. Tuberculosis screening: No symptoms or risk factors identified. Assessment: 02:24 Reassessment: Patient appears in no apparent distress at this time. No changes from bm8 previously documented assessment. Patient and/or family updated on plan of care and expected duration. Pain level reassessed. Patient is alert, oriented x 3, equal unlabored respirations, skin warm/dry/pink. Patient denies pain at this time. 03:42 Reassessment: Patient appears in no apparent distress at this time. No changes from bm8 previously documented assessment. Patient and/or family updated on plan of care and expected duration. Pain level reassessed. Patient is alert, oriented x 3, equal unlabored respirations, skin warm/dry/pink. pt up to restroom with minimal assistance Patient denies pain at this time. 04:30 Reassessment: Patient appears in no apparent distress at this time. No changes from bm8 previously documented assessment. Patient and/or family updated on plan of care and expected duration. Pain level reassessed. Patient is alert, oriented x 3, equal unlabored respirations, skin warm/dry/pink. Patient denies pain at this time. Neuro: Level of Consciousness is awake, alert, obeys commands, Oriented to person, place, situation, Appropriate for age. Cardiovascular: No deficits noted. Respiratory: No deficits noted. GI: No deficits noted. No signs and/or symptoms were reported involving the gastrointestinal system. : No deficits noted. No signs and/or symptoms were reported regarding the genitourinary system. EENT: No deficits noted. No signs and/or symptoms were reported regarding the EENT system. Derm: No deficits noted. No signs and/or symptoms reported regarding the dermatologic system. Musculoskeletal: No deficits noted. No signs and/or symptoms reported regarding the musculoskeletal system. Vital Signs: 01:37 BP 161 / 81; Pulse 113; Resp 17; Temp 97.7; Pulse Ox 96% on R/A; Weight 63.96 kg; bm8 Height 5 ft. 3 in. ; Pain 0/10; 02:24 BP 142 / 109; Pulse 103; Resp 20; Temp 97.7; Pulse Ox 93% ; Pain 0/10; bm8 03:42 BP 140 / 77; Pulse 99; Resp 20; Temp 97.7; Pulse Ox 96% ; Pain 0/10; bm8 04:30 BP 156 / 75; Pulse 97; Resp 17; Temp 97.7; Pulse Ox 95% ; Pain 0/10; bm8 01:37 Body Mass Index 24.98 (63.96 kg, 160.02 cm) bm8 01:37 Pain Scale: Adult bm8 02:24 Pain Scale: Adult bm8 03:42 Pain Scale: Adult bm8 04:30 Pain Scale: Adult bm8 Maya Coma Score: 02:24 Eye Response: spontaneous(4). Motor Response: obeys commands(6). Verbal Response: bm8 oriented(5). Total: 15. 04:30 Eye Response: spontaneous(4). Motor Response: obeys commands(6). Verbal Response: bm8 oriented(5). Total: 15. ED Course: 01:32 Patient arrived in ED. [id number] 01:34 Sandeep Harrison MD is Attending Physician. bo1 01:36 Agustín Tejeda, RN is Primary Nurse. bm8 01:45 Triage completed. bm8 01:45 Arm band placed on right wrist. bm8 02:24 Patient has correct armband on for positive identification. Bed in low position. Side bm8 rails up X2. Adult w/ patient. Client placed on continuous cardiac and pulse oximetry monitoring. NIBP monitoring applied. Pulse ox on. NIBP on. Door closed. Noise minimized. Warm blanket given. Pillow given. Verbal reassurance given. Head of bed elevated. 02:24 No provider procedures requiring assistance completed. Inserted saline lock: 22 gauge bm8 in right antecubital area, using aseptic technique. Blood collected. Flushed with 10 mL NS. 04:30 Provided Education on: post er care. bm8 04:30 IV discontinued, intact, bleeding controlled, No redness/swelling at site. Pressure bm8 dressing applied. Administered Medications: 02:23 Drug: NS 0.9% IV 1000 ml IV at 1 bolus Per protocol; 1000 mL bolus Route: IV; Rate: 1 bm8 bolus; Site: right antecubital; 03:28 Follow up: Response: No adverse reaction; IV Status: Completed infusion; IV Intake: bm8 1000ml Medication: 02:24 VIS not applicable for this client. bm8 Intake: 03:28 IV: 1000ml; Total: 1000ml. bm8 Outcome: 04:30 Discharged to home ambulatory, with family, bm8 04:30 Condition: stable 04:30 Discharge instructions given to patient, family, Instructed on discharge instructions, follow up and referral plans. Demonstrated understanding of instructions, follow-up care, 04:38 Discharge ordered by . bo1 04:46 Prescriptions given X 1, bm8 04:46 Patient left the ED. bm8 Signatures: Albertina Salazar jj6 Sandeep Harrison MD MD bo1 Agustín Tejeda, RN RN bm8
--- NOTE | 2024-05-22 04:39 | EDPHYS ---
Physician Documentation [facility] Name: Madeline Gracia Age: 78 yrs Sex: Female : 1945 Arrival Date: 05/22/2024 Time: 01:28 Bed 5 Private MD: ED Physician Sandeep Harrison HPI: 05/22 04:30 This 78 yrs old Female presents to ER via EMS with complaints of General Weakness, bo1 Dizziness. 04:30 Onset: The symptoms/episode began/occurred gradually, Off/on since [place] Jenny. bo1 Context: Hx of staying with her daughter, son here temporarily kept her for 4 days. Associated signs and symptoms: Pertinent positives: Frequent urinations [place] at night. Pt has had UTI in past. Pt is unable to see her prior [facility] Dr [place]. Tried to go see Carmita Grant w/o success. Historical: - Allergies: 01:45 Codeine; bm8 - Home Meds: 01:45 ezetimibe 10 mg oral tablet 1 tab daily [Active]; alprazolam 0.5 mg oral tablet 0.5 bm8 tabs 2 times per day [Active]; fluoxetine 20 mg Oral capsule 1 cap daily [Active]; albuterol sulfate 90 mcg/actuation Inhl HFA Aerosol Inhaler 1 inhalation prn [Active]; potassium chloride 99mg Oral Packet [Active]; - PMHx: 01:45 Hypercholesterolemia; Hypertensive disorder; bm8 - PSHx: 01:45 section; Tonsillectomy; Total abdominal hysterectomy; bm8 - Immunization history:: Adult Immunizations unknown. - Infectious Disease History:: Denies. - Social history:: Smoking status: unknown. ROS: 04:32 Constitutional: Negative for fever, chills, and weight loss, bo1 04:32 Cardiovascular: Negative for chest pain, palpitations, 04:32 Respiratory: Negative for cough, shortness of breath, 04:32 Abdomen/GI: Negative for abdominal pain, nausea and vomiting, 04:32 : Positive for urinary frequency, "nocturia", 04:32 MS/extremity: Negative for pain, Exam: 04:33 Constitutional: This is a well developed, well nourished patient who is awake, alert, bo1 and in no acute distress. 04:33 Head/face: Exam is negative for acute changes, 04:33 Respiratory: the patient does not display signs of respiratory distress, Respirations: bo1 normal, Breath sounds: are clear throughout, 04:33 Abdomen/GI: Mild distention, 04:33 Back: CVA tenderness, is absent, 04:33 Musculoskeletal/extremity: Extremities: all appear grossly normal, with no appreciated pain with palpation, 04:33 Skin: Appearance: Color: normal in color, Temperature: warm, diaphoresis is not appreciated, Dry, 04:33 Neuro: Orientation: is normal, Mentation: is normal, Memory: Cranial nerves: grossly normal, Cerebellar function: is grossly normal, Motor: is normal, Gait: is steady, appropriate for age, Vital Signs: 01:37 BP 161 / 81; Pulse 113; Resp 17; Temp 97.7; Pulse Ox 96% on R/A; Weight 63.96 kg; bm8 Height 5 ft. 3 in. ; Pain 0/10; 02:24 BP 142 / 109; Pulse 103; Resp 20; Temp 97.7; Pulse Ox 93% ; Pain 0/10; bm8 03:42 BP 140 / 77; Pulse 99; Resp 20; Temp 97.7; Pulse Ox 96% ; Pain 0/10; bm8 04:30 BP 156 / 75; Pulse 97; Resp 17; Temp 97.7; Pulse Ox 95% ; Pain 0/10; bm8 01:37 Body Mass Index 24.98 (63.96 kg, 160.02 cm) bm8 01:37 Pain Scale: Adult bm8 02:24 Pain Scale: Adult bm8 03:42 Pain Scale: Adult bm8 04:30 Pain Scale: Adult bm8 Maya Coma Score: 02:24 Eye Response: spontaneous(4). Motor Response: obeys commands(6). Verbal Response: bm8 oriented(5). Total: 15. 04:30 Eye Response: spontaneous(4). Motor Response: obeys commands(6). Verbal Response: bm8 oriented(5). Total: 15. MDM: 01:34 Patient medically screened. bo1 04:35 Differential diagnosis: generalized weakness, Frequent urination. Data reviewed: vital bo1 signs, lab test result(s), CBC, electrolytes, urinalysis, Mild hypokalemia. Special discussion: I discussed with the patient/guardian in detail that at this point there is no indication for admission to the hospital. It is understood, however, that if the symptoms persist or worsen the patient needs to return immediately for re-evaluation. F/U with PCP new doctor with [facility]; trial of oxybutynin. ED course: Pt getting up to go urinate in the BR and able to walk on own. 05/22 01:53 Order name: CBC with Diff; Complete Time: 03:54 bo1 05/22 01:53 Order name: CMP; Complete Time: 03:54 bo1 05/22 01:53 Order name: Urinalysis w/ reflexes; Complete Time: 03:54 bo1 05/22 01:53 Order name: IV Saline Lock; Complete Time: 02:23 bo1 05/22 01:53 Order name: Labs collected and sent; Complete Time: 02:23 bo1 Administered Medications: 02:23 Drug: NS 0.9% IV 1000 ml IV at 1 bolus Per protocol; 1000 mL bolus Route: IV; Rate: 1 bm8 bolus; Site: right antecubital; 03:28 Follow up: Response: No adverse reaction; IV Status: Completed infusion; IV Intake: bm8 1000ml Disposition Summary: 05/22/24 04:38 Discharge Ordered Notes: Location: Home bo1 Problem: chronic bo1 Symptoms: are unchanged bo1 Condition: Stable bo1 Diagnosis - Frequency of micturition bo1 - Insomnia, unspecified bo1 Followup: bo1 - With: Private Physician - When: - Reason: Recheck today's complaints Discharge Instructions: - Discharge Summary Sheet bo1 - Insomnia bo1 - Urinary Frequency, Adult bo1 Forms: - Medication Reconciliation Form bo1 - Antibiotic Education bo1 - Prescription Opioid Use bo1 - Patient Portal Instructions bo1 - Leadership Thank You Letter bo1 Prescriptions: - oxybutynin chloride 5 mg Oral tablet - take 1 tablet ORAL route 4 times per day; 20 tablet; Refills: 0, Product bo1 Selection Permitted Signatures: Dispatcher [employer] EDMS Sandeep Harrison MD MD bo1 Agustín Tejeda RN RN bm8
[2024-05-22 04:54] VITALS: TEMP 97.7
[2024-05-22 04:58] VITALS: BP 156/75; O2SAT 95
== END 2024-05-22 04:46 | disposition home or self-care (01) ==
LOC: ER 01:28
DX: R35.0 Frequency of micturition (principal); G47.00 Insomnia, unspecified; R53.1 Weakness; I10 Essential (primary) hypertension; E78.00 Pure hypercholesterolemia, unspecified
CPT/HCPCS: 85025; 81001; 36415; 80053; 96360; 99284; J7030